=== PATIENT | female | born 1975 | race Caucasian/White ===

== ENCOUNTER → 2016-06-06 | Outpatient (CLI) | payer OTHER | LOC: RAD 13:35 | PROVIDERS: ATTEND Internal Medicine | DX: Z08 Encounter for follow-up examination after completed treatment for malignant neoplasm (principal); C50.512 Malignant neoplasm of lower-outer quadrant of left female breast | CPT/HCPCS: 78472; A9560; Q9969 ==

== ENCOUNTER → 2016-06-22 | Outpatient (CLI) | payer OTHER | LOC: RAD 17:02 | PROVIDERS: ATTEND Internal Medicine | DX: C50.512 Malignant neoplasm of lower-outer quadrant of left female breast (principal) | CPT/HCPCS: 78815; A9552 ==

== ENCOUNTER → 2016-09-14 | Outpatient (CLI) | payer OTHER ==
--- NOTE | 2016-09-15 08:31 | RADIOLOGY REPORT (SQ) ---
EXAM DESCRIPTION: PET CT SKULL/THIGH COMPLETED DATE/TIME: 09/14/2016 8:37 pm REASON FOR STUDY: BREAST CANCER C50.512 MALIG NEOPLASM OF LOWER-OUTER QUADRANT OF LEFT FEMAL COMPARISON: 06/22/2016 and 02/01/2016. RADIONUCLIDE AND DOSE: 12.0 mCi F18 FDG The route of agent administration: Intravenous FASTING BLOOD SUGAR: 90 mg/dl CONTRAST TYPE AND DOSE: No CT contrast given. TECHNIQUE: Blood glucose level was verified. Above dose of FDG was injected intravenously. 2-D seg mented attenuation correction images were obtained from the base of the skull to the midthighs. Nonc ontrast CT images were obtained for attenuation correction and fusion with emission images. CT image s were performed without oral or intravenous contrast and are not sensitive for parenchymal lesions. A series of overlapping emission PET images were obtained. Images reviewed and manipulated at [facility] work station by the radiologist. Images stored on PACS. LIMITATIONS: None. FINDINGS: HEAD AND NECK: No areas of abnormal metabolic activity in the soft tissues of the head and neck. CHEST: Left mastectomy. 8 mm nodule in the medial right breast. Mean SUV value 2.63. No other area s of abnormal metabolic activity in the chest. ABDOMEN AND PELVIS: No areas of abnormal metabolic activity in the abdomen or pelvis. Expected physi ologic activity is present in the genitourinary system and bowel. PROXIMAL LOWER EXTREMITIES: No areas of abnormal metabolic activity in the soft tissues of the lower extremities. BONES: No abnormal metabolic activity in the visualized skeleton. ADDITIONAL CT FINDINGS: Vascular access port. Left ovarian cyst. No other additional significant fi ndings on the noncontrast CT images. OTHER: No other significant findings. IMPRESSION: 1. 8 MM NODULE IN THE MEDIAL RIGHT BREAST WITH INCREASED METABOLIC ACTIVITY. ON CT IMAGING THIS COUL D REPRESENT A LYMPH NODE ALTHOUGH OTHER SOLID MASS INCLUDING MALIGNANT PROCESS ARE ALSO IN THE DIFFER ENTIAL. RECOMMEND CORRELATION WITH MAMMOGRAM AND ULTRASOUND OF THE RIGHT BREAST. 2. NO OTHER AREAS OF ABNORMAL METABOLIC ACTIVITY. INCIDENTAL CT FINDINGS ABOVE. TECHNICAL DOCUMENTATION: JOB ID: [id number] [employer]- All Rights Reserved
== END ==
LOC: RAD 17:20
PROVIDERS: ATTEND Internal Medicine
DX: C50.512 Malignant neoplasm of lower-outer quadrant of left female breast (principal)
CPT/HCPCS: 78815; A9552

== ENCOUNTER → 2016-10-28 | Outpatient (CLI) | payer OTHER ==
--- NOTE | 2016-10-28 08:59 | WOMENS IMAGING REPORT ---
EXAM DESCRIPTION: 3D DX MAMMO RIGHT UNILAT; U/S BREAST UNILAT LIMITED COMPLETED DATE/TIME: 10/28/2016 8:09 am; 10/28/2016 8:38 am REASON FOR STUDY: MALIGNANT NEOPLASM OF LOWER OUTER QUADRANT OF FEMALE BREAST; RT BREAST MASS C50.51 2 MALIG NEOPLASM OF LOWER-OUTER QUADRANT OF LEFT FEMAL COMPARISON: Mammogram dated 12/30/2012. PET-CT dated 09/14/2016. TECHNIQUE: Standard craniocaudal and mediolateral oblique images of the breast recorded using digita l acquisition and breast tomosynthesis. Additional true lateral and exaggerated CC lateral images also acquired. LIMITATIONS: None. FINDINGS: BREAST: right MASSES: Mass in the medial breast with irregular margins. CALCIFICATIONS: No new or suspicious calcifications. ARCHITECTURAL DISTORTION: None. DEVELOPING DENSITY: None. ASYMMETRY: None noted. OTHER: No other significant findings. Read with the assistance of CAD. .[facility] - R2 [employer] Version 1.3 .[facility] - R2 Cenova Version 1.3 .[facility] Imaging - R2 Cenova Version 2.4 .[facility] - R2 Cenova Version 2.4 .[facility] - R2 [employer] Version 9.2 BREAST ULTRASOUND: TECHNIQUE: Static and dynamic grayscale images acquired of the right breast in the specific areas of clinical/mammographic concern. Selected color Doppler images recorded. ELASTOGRAPHY PERFORMED: No. LIMITATIONS: None. FINDINGS: MASS: In the medial breast there is an irregular hypoechoic solid mass measuring 1 cm. This has blake stinct margins with flow on color Doppler. ELASTOGRAPHY CHARACTERISTICS: Not applicable. OTHER: No other significant finding. IMPRESSION: Irregular solid mass in the medial breast corresponding to the findings on PET scan. Wo rrisome for malignancy. BREAST DENSITY: c. The breasts are heterogeneously dense, which may obscure small masses. BIRAD: 4 Suspicious. Biopsy should be considered. RECOMMENDATION: RECOMMENDED FOLLOW UP: Birads 4: Biopsy should be performed in the absence of clinic al contraindication. SPECIFIC INTERVENTION/IMAGING/CONSULTATION RECOMMENDED:The suspicious finding(s) amenable to US guide d core/vacuum assisted biopsy. COMMUNICATION:The imaging findings were discussed with the patient. She is aware that additional adva nced imaging/consultation may be required. Her referring physician has been notified. COMMENT: The patient has been notified of the results by letter per MQSA requirements. Additional no tification policies are in place for contacting patient with suspicious or incomplete findings. Quality ID #[id number]: The [employer] recommends an annual screening mammogram for women aged 40 years or over. This facility utilizes a reminder system to ensure that all patients receive reminder letters, and/or direct phone calls for appointments. This includes reminders for routine scr eening mammograms, diagnostic mammograms, or other Breast Imaging Interventions when appropriate. Th is patient will be placed in the appropriate reminder system. The [employer] (ACR) has developed recommendations for screening MRI of the breast s in certain patient populations, to be used in conjunction with mammography. Breast MRI surveillanc e may be appropriate for women with more than 20% lifetime risk of developing breast cancer as deter mined by genetic testing, significant family history of the disease, or history of mantle radiation f or Hodgkins Disease. ACR Practice Guidelines 2008. DBT Technology DBT is a type of tomographic mammography. With conventional mammography, overlapping breast tissue ma y make lesions difficult to detect, even with good compression. DBT uses an x-ray tube that rotates a round the breast, taking images at different angles. These images are then combined to create thin sl ices of the breast that the radiologist can view as a 3D reconstruction. The [employer] unit can perform full-field digital mammograms (2D imaging); or DBT (3D imaging); or both, in a combination mode that quickly performs both the mammogram and the tomosynthesis scan while the breast is still compressed. PQRS 6045F: Fluoroscopic imaging is not utilized for breast tomosynthesis. TECHNICAL DOCUMENTATION: FINDING NUMBER: (1) ASSESSMENT: (1) JOB ID: [id number] [employer]- All Rights Reserved
--- NOTE | 2016-10-28 08:59 | WOMENS IMAGING REPORT ---
EXAM DESCRIPTION: 3D DX MAMMO RIGHT UNILAT; U/S BREAST UNILAT LIMITED COMPLETED DATE/TIME: 10/28/2016 8:09 am; 10/28/2016 8:38 am REASON FOR STUDY: MALIGNANT NEOPLASM OF LOWER OUTER QUADRANT OF FEMALE BREAST; RT BREAST MASS C50.51 2 MALIG NEOPLASM OF LOWER-OUTER QUADRANT OF LEFT FEMAL COMPARISON: Mammogram dated 12/30/2012. PET-CT dated 09/14/2016. TECHNIQUE: Standard craniocaudal and mediolateral oblique images of the breast recorded using digita l acquisition and breast tomosynthesis. Additional true lateral and exaggerated CC lateral images also acquired. LIMITATIONS: None. FINDINGS: BREAST: right MASSES: Mass in the medial breast with irregular margins. CALCIFICATIONS: No new or suspicious calcifications. ARCHITECTURAL DISTORTION: None. DEVELOPING DENSITY: None. ASYMMETRY: None noted. OTHER: No other significant findings. Read with the assistance of CAD. .[facility] - R2 Cenova Version 1.3 .[facility] Imaging - R2 Cenova Version 1.3 .[facility] - R2 Cenova Version 2.4 .[facility] - R2 Cenova Version 2.4 .[facility] - R2 Internet [employer] Manager Version 9.2 BREAST ULTRASOUND: TECHNIQUE: Static and dynamic grayscale images acquired of the right breast in the specific areas of clinical/mammographic concern. Selected color Doppler images recorded. ELASTOGRAPHY PERFORMED: No. LIMITATIONS: None. FINDINGS: MASS: In the medial breast there is an irregular hypoechoic solid mass measuring 1 cm. This has blake stinct margins with flow on color Doppler. ELASTOGRAPHY CHARACTERISTICS: Not applicable. OTHER: No other significant finding. IMPRESSION: Irregular solid mass in the medial breast corresponding to the findings on PET scan. Wo rrisome for malignancy. BREAST DENSITY: c. The breasts are heterogeneously dense, which may obscure small masses. BIRAD: 4 Suspicious. Biopsy should be considered. RECOMMENDATION: RECOMMENDED FOLLOW UP: Birads 4: Biopsy should be performed in the absence of clinic al contraindication. SPECIFIC INTERVENTION/IMAGING/CONSULTATION RECOMMENDED:The suspicious finding(s) amenable to US guide d core/vacuum assisted biopsy. COMMUNICATION:The imaging findings were discussed with the patient. She is aware that additional adva nced imaging/consultation may be required. Her referring physician has been notified. COMMENT: The patient has been notified of the results by letter per MQSA requirements. Additional no tification policies are in place for contacting patient with suspicious or incomplete findings. Quality ID #[id number]: The [employer] recommends an annual screening mammogram for women aged 40 years or over. This facility utilizes a reminder system to ensure that all patients receive reminder letters, and/or direct phone calls for appointments. This includes reminders for routine scr eening mammograms, diagnostic mammograms, or other Breast Imaging Interventions when appropriate. Th is patient will be placed in the appropriate reminder system. The [employer] (ACR) has developed recommendations for screening MRI of the breast s in certain patient populations, to be used in conjunction with mammography. Breast MRI surveillanc e may be appropriate for women with more than 20% lifetime risk of developing breast cancer as deter mined by genetic testing, significant family history of the disease, or history of mantle radiation f or Hodgkins Disease. ACR Practice Guidelines 2008. DBT Technology DBT is a type of tomographic mammography. With conventional mammography, overlapping breast tissue ma y make lesions difficult to detect, even with good compression. DBT uses an x-ray tube that rotates a round the breast, taking images at different angles. These images are then combined to create thin sl ices of the breast that the radiologist can view as a 3D reconstruction. The [employer] unit can perform full-field digital mammograms (2D imaging); or DBT (3D imaging); or both, in a combination mode that quickly performs both the mammogram and the tomosynthesis scan while the breast is still compressed. PQRS 6045F: Fluoroscopic imaging is not utilized for breast tomosynthesis. TECHNICAL DOCUMENTATION: FINDING NUMBER: (1) ASSESSMENT: (1) JOB ID: [id number] [employer]- All Rights Reserved
== END ==
LOC: WI 07:44
PROVIDERS: ATTEND Internal Medicine
DX: C50.512 Malignant neoplasm of lower-outer quadrant of left female breast (principal)
CPT/HCPCS: 77061; 76642; G0206

== ENCOUNTER → 2016-11-07 | Day surgery (SDC) | payer OTHER ==
[~2016-11-07] MED LIST: LIDOCAINE 2% INJ (20 MG/ML) 20 ML MDV ONE
--- NOTE | 2016-11-11 17:39 | WOMENS IMAGING REPORT ---
EXAM DESCRIPTION: U/S BREAST BX; RIGHT DIG DX MAMMO NO CHG COMPLETED DATE/TIME: 11/07/2016 10:34 am; 11/07/2016 10:32 am REASON FOR STUDY: RT BREAST LUMP; N3 S/P US BX FOR CLIP PLACEMENT Z85.3 PERSONAL HISTORY OF MALIGNA NT NEOPLASM OF BREAST N63 UNSPECIFIED LUMP IN BREAST COMPARISON: Multiple previous exams including a left breast diagnostic mammogram and ultrasound 10/28, PET-CT 09/14/2016 TECHNIQUE: The procedure was discussed with the patient and the patient agreed to proceed. The patient was scanned and the area of interest in the 3 o'clock position 10 cm from the nipple of t he right breast was localized. This correlates with the area of concern on prior imaging studies. Th is area was targeted for ultrasound-guided core biopsy. After sterile skin prep and 3.5 mL local lidocaine 1% for skin and deep tissue anesthesia, a 14 gauge coaxial core biopsy needle was used to obtain several cores of tissue from the lesion. Under ultras ound guidance, a ribbon clip was placed in the areas sampled. There were no immediate post-procedure complications. MAMMOGRAM: Post-procedure two view mammogram was acquired in the digital mammogram suite. The clip wa s in the expected location. No significant hematoma. Pathology yields a diagnosis of well-differentiated invasive ductal carcinoma Pathology is concordant. LIMITATIONS: None. FINDINGS: Ultrasound guided breast biopsy as described above. POST PROCEDURE MAMMOGRAMS FOR MARKER PLACEMENT: Yes IMPRESSION: ULTRASOUND-GUIDED CORE BIOPSY OF THE RIGHT BREAST YIELDS A DIAGNOSIS OF WELL-DIFFERENTIA KRISTI INVASIVE DUCTAL CARCINOMA. BI-RADS 6 Known biopsy-proven malignancy. Appropriate action should be taken. COMMENT: COMMUNICATION: THESE FINDINGS WERE DISCUSSED WITH THE PATIENT, 11/10/2016, 1015 HOURS Patient medication list reviewed: Yes- Quality ID# [id number]:Eligible professional attests to documenting i n the medical record they obtained, updated, or reviewed the patient's current medications. TECHNICAL DOCUMENTATION: JOB ID: [id number] [employer]- All Rights Reserved
== END ==
LOC: WI 09:19
PROVIDERS: ATTEND Surgery
PROC: 0HBT3ZX Excision of Right Breast, Percutaneous Approach, Diagnostic (ICD-10-PCS; principal; 2016-11-07)
DX: C50.911 Malignant neoplasm of unspecified site of right female breast (principal); Z85.3 Personal history of malignant neoplasm of breast
CPT/HCPCS: 19083; 88305; J3490

== ENCOUNTER 2016-11-25 07:32 | Day surgery (SDC) | payer OTHER ==
[2016-11-20 11:51] LABS: ANION GAP 15 (5-19); BLOOD UREA NITROGEN 18 mg/dL (7-20); CALCIUM 9.9 mg/dL (8.4-10.2); CARBON DIOXIDE 24 mmol/L (22-30); CHLORIDE 105 mmol/L (98-107); CREATININE RESULT 0.66 mg/dL (0.52-1.25); GLUCOSE 97 mg/dL (75-110); POTASSIUM 4.3 mmol/L (3.6-5.0); SODIUM 144.3 mmol/L (137-145)
[2016-11-20 12:19] LABS: ABSOLUTE EOSINOPHILS # (AUTO) 0.2 10^3/uL (0.0-0.6); ABSOLUTE LYMPHOCYTES (AUTO) 1.6 10^3/uL (0.5-4.7); ABSOLUTE MONOCYTES (AUTO) 0.4 10^3/uL (0.1-1.4); ABSOLUTE NEUT (AUTO) 4.9 10^3/uL (1.7-8.2); BASOPHILS % (AUTO) 0.5 % (0-2); EOSINOPHILS % (AUTO) 2.2 % (0-6); HEMATOCRIT 38.3 % (36.0-47.0); HEMOGLOBIN 13.3 g/dL (12.0-15.5); HGB HCT DIFFERENCE 1.6; LYMPHOCYTES % (AUTO) 22.5 % (13-45); MEAN CORPUSCULAR HEMOGLOBIN 32.6 pg (27.0-33.4); MEAN CORPUSCULAR HGB CONC 34.8 g/dL (32.0-36.0); MEAN CORPUSCULAR VOLUME 94 fl (80-97); MONOCYTES % (AUTO) 5.1 % (3-13); RED BLOOD COUNT 4.09 10^6/uL (3.72-5.28); RED CELL DISTRIBUTION WIDTH 13.9 % (11.5-14.0); SEGMENTED NEUTROPHILS % (AUTO) 69.7 % (42-78); WHITE BLOOD COUNT 7.1 10^3/uL (4.0-10.5)
--- NOTE | 2016-11-20 19:49 | EKG REPORT ---
SEVERITY:- NORMAL ECG - SINUS RHYTHM : Confirmed by: Chris Haq MD 20-Nov-2016 19:49:00
[~2016-11-25 07:32] MED LIST changes: +CEFAZOLIN 1 GM/D5W RTU 1 GM/50 ML RTUPB IV PRN; +LACTATED RINGERS 1000 ML IV PRN; +LIDOCAINE 0.5% INJ-PF (5 MG/ML) 50 ML SDV SUBCUT PRN; -LIDOCAINE 2% INJ (20 MG/ML) 20 ML MDV ONE; +LIDOCAINE 4% TRANSPARENT DRESSING 5 GM KIT TP PRN; +NORMAL SALINE 1000 ML 1,000 ML IV PRN
[2016-11-25] MEDS ORDERED: SUCCINYLCHOLINE CHLORIDE INJ 200 MG/10 ML VIAL ONE (07:38)
[2016-11-25] MEDS ORDERED: METHYLENE BLUE 50 MG/10 ML AMPULE ONE (12:33)
--- NOTE | 2016-11-25 13:15 | RADIOLOGY REPORT (SQ) ---
EXAM DESCRIPTION: NM LYMPHATICS/LYMPH GLANDS COMPLETED DATE/TIME: 11/25/2016 11:12 am REASON FOR STUDY: BREAST CANCER C50.911 MALIGNANT NEOPLASM OF UNSP SITE OF RIGHT FEMALE ZAY COMPARISON: None. RADIONUCLIDE AND DOSE: 526 microcuries TC-99mtilmanocept - [employer]ek. The route of agent administration: Subcutaneous in the skin. TECHNIQUE: The skin of the right breast was prepped in sterile fashion. The radiopharmaceutical was administered in equally divided doses in the periareolar breast. LIMITATIONS: None. FINDINGS: Images demonstrate activity at the injection site. IMPRESSION: ADMINISTRATION OF RADIOPHARMACEUTICAL FOR SENTINEL LYMPH NODE EVALUATION. TECHNICAL DOCUMENTATION: JOB ID: [id number] [employer]- All Rights Reserved
[2016-11-25] MEDS ORDERED: LIDOCAINE 2% INJ-PF (20 MG/ML) 10 ML AMPUL ONE (13:43)
[2016-11-25] MEDS ORDERED: MIDAZOLAM 2 MG/2 ML INJ ONE (13:43)
[2016-11-25] MEDS ORDERED: FENTANYL CITRATE INJ/PF 250 MCG/5 ML AMPULE ONE (13:43)
[2016-11-25] MEDS ORDERED: IBUPROFEN INJ 800 MG/8 ML VIAL IV ONE (13:44)
[2016-11-25] MEDS ORDERED: EPHEDRINE SULFATE INJ 50 MG/1 ML AMPULE ONE (13:44)
[2016-11-25] MEDS ORDERED: PROPOFOL INJ 200 MG/20 ML VIAL IV ONE (13:44)
[2016-11-25] MEDS ORDERED: ONDANSETRON HCL INJ/PF 4 MG/2 ML SDV ONE (13:45)
[2016-11-25] MEDS ORDERED: DEXAMETHASONE SOD PHOSPHATE INJ 4 MG/1 ML VIAL ONE (13:45)
[2016-11-25] MEDS ORDERED: MEPERIDINE HCL/PF INJ 25 MG/1 ML DISP.SYRIN IV PRN (14:49)
[2016-11-25] MEDS ORDERED: ONDANSETRON HCL INJ/PF 4 MG/2 ML SDV IV PRN (14:49)
[2016-11-25] MEDS ORDERED: FENTANYL CITRATE INJ/PF 100 MCG/2 ML AMPUL IV PRN ×3 (14:49)
[2016-11-25] MEDS ORDERED: PROMETHAZINE HCL INJ 25 MG/1 ML VIAL IV PRN ×2 (14:49)
[2016-11-25] MEDS ORDERED: DIPHENHYDRAMINE HCL 50 MG/ML VIAL IV PRN (14:49)
[2016-11-25] MEDS ORDERED: NORMAL SALINE 1000 ML 1,000 ML IV PRN (17:10)
[2016-11-25] MEDS ORDERED: MORPHINE SULFATE 10 MG/ML INJ IV PRN (17:10)
--- NOTE | 2016-11-25 17:10 | Operative Report ---
Operative Report DATE OF SURGERY: 11/25/16 PREOPERATIVE DIAGNOSIS: Right breast cancer POSTOPERATIVE DIAGNOSIS: Right breast cancer OPERATION: Right mastectomy, injection of blue dye for identification of sentinel nodes, right axillary sentinel node biopsy. SURGEON: VALENTINO STACY ANESTHESIA: GA TISSUE REMOVED OR ALTERED: Right breast and right axillary sentinel nodes. COMPLICATIONS: None ESTIMATED BLOOD LOSS: 200 cc INTRAOPERATIVE FINDINGS: Enlarged lymph node in the right axilla. Two hot but not blue right axillary lymph nodes. PROCEDURE: Informed consent was obtained. Patient was brought to the operating room and placed on the operating table in the supine position. After satisfactory induction of general anesthesia, her right breast was prepped with alcohol and blue dye was injected at the periareolar region and breast massage was performed for 5 minutes. Her right breast and axilla were prepped and draped in usual sterile fashion. Ellipse of skin encompassing the nipple areolar complex was taken along with the breast. Superior inferior medial and lateral flaps were raised and then the breast was taken off the pectoralis along with the fascia. Of note the soft tissue around the right subclavian Port-A-Cath was left intact to preserve the Port-A-Cath. The right axilla was then entered. There was no blue dye visible. There was an enlarged firm lymph node in the level 1 location which was harvested and submitted to pathology. Pathologic evaluation was negative for metastatic disease. There were 2 hot nodes but not blue nodes identified in level 1 location. The first of these 2 hot nodes had an in vivo count of 4360 and an ex vivo count of 10,176. The second hot node had an in vivo count of 1331 and ex vivo count of 1456. Neither of these nodes were blue however. No blue node was identified. The 2 hot nodes were negative on pathologic evaluation. The breast was submitted to pathology with short stitch marking superior border long stitch marking lateral border. Hemostasis appeared excellent. Seprafilm was placed at the axilla. 2 Brad-Santamaria drains were placed one at the axilla and one at the mastectomy site and brought out through separate stab incisions. Skin was closed with deep dermal interrupted Vicryl sutures followed by running subcuticular Prolene pullout suture. Patient tolerated procedure well with no apparent complications and was taken to the recovery area in stable condition.
[2016-11-25] MEDS: FENTANYL CITRATE INJ/PF 100 MCG/2 ML AMPUL ONE ×2 (17:12→17:16)
[2016-11-25] MEDS ORDERED: HYDROMORPHONE HCL INJ/PF 2 MG/ML AMPULE ONE (19:34)
[2016-11-25] MEDS: ONDANSETRON HCL INJ/PF 4 MG/2 ML SDV IV PRN (19:40)
--- NOTE | 2016-11-25 19:43 | PDOC PROGRESS REPORT ---
Subjective Progress Note for:: 11/25/16 Subjective:: Feels well. Physical Exam Vital Signs: Temp Pulse Resp BP Pulse Ox 98.3 F 70 18 149/69 H 98 11/25/16 19:05 11/25/16 19:05 11/25/16 19:05 11/25/16 19:05 11/25/16 19:05 Intake & Output 11/24/16 11/25/16 11/26/16 06:59 06:59 06:59 Intake Total 2200 Output Total 550 Balance 1650 Weight 95.25 kg 95.25 kg General appearance: PRESENT: no acute distress, cooperative Respiratory exam: PRESENT: other - Compressive dressings intact. Drain output is blood-tinged. Results Laboratory Results: 11/20/16 10:31 11/20/16 10:31 Impressions: Lymph Scan Nuclear Medicine 11/25/16 00:00 IMPRESSION: ADMINISTRATION OF RADIOPHARMACEUTICAL FOR SENTINEL LYMPH NODE EVALUATION. Assessment & Plan - Diagnosis (1) Breast cancer Qualifiers: Patient sex: female Laterality: right Is this a current diagnosis for this admission?: Yes Plan: Status post right mastectomy and sentinel node biopsy. Patient looks good. Will discharge patient home in the morning.
[2016-11-26] MEDS: HYDROMORPHONE HCL INJ/PF 2 MG/ML AMPULE IV PRN ×2 (05:04→10:36)
[2016-11-26] MEDS: ONDANSETRON HCL INJ/PF 4 MG/2 ML SDV IV PRN (05:05)
--- NOTE | 2016-11-26 09:17 | PDOC PROGRESS REPORT ---
Subjective Progress Note for:: 11/26/16 Subjective:: Feels well, no complaints Physical Exam Vital Signs: Temp Pulse Resp BP Pulse Ox 97.5 F 65 16 121/63 100 11/26/16 07:13 11/26/16 07:13 11/26/16 07:13 11/26/16 07:13 11/26/16 07:13 Intake & Output 11/25/16 11/26/16 11/27/16 06:59 06:59 06:59 Intake Total 2860 0 Output Total 880 35 Balance 1979 Weight 95.25 kg 96.2 kg General appearance: PRESENT: no acute distress, cooperative Respiratory exam: PRESENT: clear to auscultation linsey, other - Wounds clean dry and intact. Drain output is serosanguineous. Cardiovascular exam: PRESENT: RRR Extremities exam: PRESENT: other - No swelling Results Laboratory Results: 11/20/16 10:31 11/20/16 10:31 Impressions: Lymph Scan Nuclear Medicine 11/25/16 00:00 IMPRESSION: ADMINISTRATION OF RADIOPHARMACEUTICAL FOR SENTINEL LYMPH NODE EVALUATION. Assessment & Plan - Diagnosis (1) Breast cancer Qualifiers: Patient sex: female Laterality: right Is this a current diagnosis for this admission?: Yes Plan: Doing well after mastectomy and sentinel node biopsy. Will discharge patient home. Follow-up next week.
[2016-11-26] MEDS ORDERED: INFLUENZA ADLT QUAD (36MOS+) 2017-18 VAC 0.5 ML SYR IM PRN (11:26)
[2016-11-26 12:35] VITALS: BP 145/59
--- NOTE | 2016-11-26 14:45 | WOMENS IMAGING REPORT ---
EXAM DESCRIPTION: BREAST SPECIMEN COMPLETED DATE/TIME: 11/26/2016 11:13 am; 11/26/2016 11:53 am REASON FOR STUDY: RT BREAST SPECIMEN C50.911 MALIGNANT NEOPLASM OF UNSP SITE OF RIGHT FEMALE ZAY COMPARISON: Multiple previous mammograms and ultrasound exams TECHNIQUE: Specimen radiograph from breast procedure performed in the operating room. LIMITATIONS: None. FINDINGS: Specimen radiograph from breast procedure performed in the operating room. The nodule of concern and ultrasound-guided biopsy clip are contained within the initial specimen from the OR, ban r the ball point pen marker. Cassettes were also submitted for radiographs, the cassette adjacent to the single paper clip contain s the biopsy clip. Please see procedure note for details and final pathology. IMPRESSION: Specimen radiograph. TECHNICAL DOCUMENTATION: JOB ID: [id number]
--- NOTE | 2016-11-26 22:53 | DISCHARGE SUMMARY E ---
Discharge Summary NAME: RICHELLE DICK : 1975 AGE: 41Y ADMITTED: 11/25/2016 DISCHARGED: 11/26/2016 DISCHARGE DIAGNOSIS: Right breast cancer. PROCEDURE PERFORMED DURING HOSPITALIZATION: Right mastectomy, injection of blue dye for identification of sentinel nodes, right axillary sentinel node biopsy performed by Dr. Joselito Plaza, November 25, 2016. HOSPITAL COURSE: The patient underwent the above mentioned procedure. She did well postoperatively. She had good control of her pain. Her Brad-Santamaria drain output was serosanguineous and her wounds looked good. Patient is now being discharged home in good condition. She will follow up with me next week. Brad-Santamaria drain instructions were given to the patient. Discharge medications are to resume her home medication. Additional medication Percocet 1 p.o. q.4 hours p.r.n. pain. She was encouraged to stay active at home. She may follow a regular diet. DICTATING PHYSICIAN: JOSELITO PLAZA M.D. [id number] Y#: [id number] ID: [id number] JOB#: [id number] ACCT: [id number] cc:JOSELITO PLAZA M.D. >
== END 2016-11-26 12:05 | disposition home or self-care (01) ==
LOC: OROUT 07:32 → 4N 18:19 → OROUT 11-26 12:05
PROVIDERS: ATTEND Surgery
PROC: 07B50ZX Excision of Right Axillary Lymphatic, Open Approach, Diagnostic (ICD-10-PCS; 2016-11-25)
PROC: 0HTT0ZZ Resection of Right Breast, Open Approach (ICD-10-PCS; principal; 2016-11-25 11:30)
DX: C50.811 Malignant neoplasm of overlapping sites of right female breast (principal); C77.3 Secondary and unspecified malignant neoplasm of axilla and upper limb lymph nodes; M19.90 Unspecified osteoarthritis, unspecified site; E66.9 Obesity, unspecified; G40.909 Epilepsy, unspecified, not intractable, without status epilepticus; Z88.5 Allergy status to narcotic agent; Z85.3 Personal history of malignant neoplasm of breast; Z79.899 Other long term (current) drug therapy; Z68.34 Body mass index [BMI] 34.0-34.9, adult; Z87.891 Personal history of nicotine dependence; Z87.820 Personal history of traumatic brain injury
CPT/HCPCS: 93005; 36415; 85025; 81025; 80048; 88307 ×2; 78195; 90686; 93010; 76098; 19307; L8000; A9520; J2250; J0690; J1100; J3490 ×3; J3010 ×2; J1170 ×2; J0330; J2405 ×2; J2704; J1741; Q9968; 1610

== ENCOUNTER → 2017-02-10 | Outpatient (CLI) | payer OTHER ==
--- NOTE | 2017-02-11 10:13 | RADIOLOGY REPORT (SQ) ---
EXAM DESCRIPTION: PET CT SKULL/THIGH COMPLETED DATE/TIME: 02/10/2017 7:54 pm REASON FOR STUDY: BREAST CANCER C50.512 MALIG NEOPLASM OF LOWER-OUTER QUADRANT OF LEFT FEMAL COMPARISON: PET-CT 12/18/2013, 07/21/2014, 01/22/2016, 09/14/2016 RADIONUCLIDE AND DOSE: 11.3 mCi F18 FDG The route of agent administration: Intravenous FASTING BLOOD SUGAR: 107 mg/dl CONTRAST TYPE AND DOSE: No CT contrast given. TECHNIQUE: Blood glucose level was verified. Above dose of FDG was injected intravenously. 2-D seg mented attenuation correction images were obtained from the base of the skull to the midthighs. Nonc ontrast CT images were obtained for attenuation correction and fusion with emission images. CT image s were performed without oral or intravenous contrast and are not sensitive for parenchymal lesions. A series of overlapping emission PET images were obtained. Images reviewed and manipulated at [facility] work station by the radiologist. Images stored on PACS. LIMITATIONS: None. FINDINGS: HEAD AND NECK: No areas of abnormal metabolic activity in the soft tissues of the head and neck. CHEST: No areas of abnormal metabolic activity in the chest. ABDOMEN AND PELVIS: No areas of abnormal metabolic activity in the abdomen or pelvis. Expected physi ologic activity is present in the genitourinary system and bowel. PROXIMAL LOWER EXTREMITIES: No areas of abnormal metabolic activity in the soft tissues of the lower extremities. BONES: No abnormal metabolic activity in the visualized skeleton. ADDITIONAL CT FINDINGS: Bilateral mastectomies with right axillary surgical clips. Right permanent c entral line tip superior vena cava. Less than 2 cm bilateral ovarian cysts. 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 OTHER: Liver background SUV 2.2. Blood pool background activity 1.7 SUV. IMPRESSION: No PET-CT evidence of metastatic disease from patient's known breast cancer TECHNICAL DOCUMENTATION: JOB ID: [id number] [employer]- All Rights Reserved
== END ==
LOC: RAD 15:36
PROVIDERS: ATTEND Internal Medicine
DX: C50.512 Malignant neoplasm of lower-outer quadrant of left female breast (principal)
CPT/HCPCS: 78815; A9552

== ENCOUNTER → 2017-05-31 | Outpatient (CLI) | payer OTHER ==
--- NOTE | 2017-06-01 08:55 | RADIOLOGY REPORT (SQ) ---
EXAM DESCRIPTION: PET CT SKULL/THIGH COMPLETED DATE/TIME: 05/31/2017 6:04 pm REASON FOR STUDY: BREAST CANCER C50.512 MALIG NEOPLASM OF LOWER-OUTER QUADRANT OF LEFT FEMAL COMPARISON: 02/10/2017 RADIONUCLIDE AND DOSE: 9.9 mCi F18 FDG The route of agent administration: Intravenous FASTING BLOOD SUGAR: 89 mg/dl CONTRAST TYPE AND DOSE: No CT contrast given. TECHNIQUE: Blood glucose level was verified. Above dose of FDG was injected intravenously. 2-D seg mented attenuation correction images were obtained from the base of the skull to the midthighs. Nonc ontrast CT images were obtained for attenuation correction and fusion with emission images. CT image s were performed without oral or intravenous contrast and are not sensitive for parenchymal lesions. A series of overlapping emission PET images were obtained. Images reviewed and manipulated at [facility] work station by the radiologist. Images stored on PACS. LIMITATIONS: None. FINDINGS: HEAD AND NECK: No areas of abnormal metabolic activity in the soft tissues of the head and neck. CHEST: No areas of abnormal metabolic activity in the chest. ABDOMEN AND PELVIS: No areas of abnormal metabolic activity in the abdomen or pelvis. Expected physi ologic activity is present in the genitourinary system and bowel. PROXIMAL LOWER EXTREMITIES: No areas of abnormal metabolic activity in the soft tissues of the lower extremities. BONES: No abnormal metabolic activity in the visualized skeleton. ADDITIONAL CT FINDINGS: Right axillary clips. Right-sided port with tip in the SVC. OTHER: No other significant findings. IMPRESSION: No evidence of metastatic disease. TECHNICAL DOCUMENTATION: JOB ID: [id number] [employer]- All Rights Reserved Reading location - IP/workstation name: [email or web address]
== END ==
LOC: RAD 14:43
PROVIDERS: ATTEND Internal Medicine
DX: C50.512 Malignant neoplasm of lower-outer quadrant of left female breast (principal)
CPT/HCPCS: 78815; A9552

== ENCOUNTER 2017-08-19 21:01 | Emergency (ER) | payer OTHER ==
[2017-08-19] MEDS ORDERED: DIPH/PERTUSS(ACELL)/TETANUS VAC/PF 0.5 ML SYR (>=10YO) IM ONE (23:21)
--- NOTE | 2017-08-19 23:21 | ER Document Report ---
ED Medical Screen (RME) - General Chief Complaint: Laceration Stated Complaint: LEFT INDEX FINGER INJURY Time Seen by Provider: 08/19/17 23:20 Mode of Arrival: Ambulatory Information source: Patient Notes: 42-year-old female presented to ED for complaint of laceration to her left index finger. She states she was cutting the hair of the vacuolar when the knife slipped cutting her finger. She states her tetanus is out of date she knows it is she has not had one since 1999 and she is not sure if she even had one then. Bleeding is under control she has a bandage on the finger. She states she cut it around 7:00 tonight. I have greeted and performed a rapid initial assessment of this patient. A comprehensive ED assessment and evaluation of the patient, analysis of test results and completion of medical decision making process will be conducted by an additional ED providers. TRAVEL OUTSIDE OF THE [place] IN LAST 30 DAYS: No - Related Data Allergies/Adverse Reactions: codeine [Codeine] Allergy (Severe, Verified 06/22/13 14:41) SOB, swelling animal dander Allergy (Verified 11/20/16 09:31) sneezing, congestion, eye irritation adhesive tape Adverse Reaction (Verified 12/05/16 10:27) Past Medical History - Past Medical History Cardiac Medical History: Reports: Hx Hypertension - HX OF BUT NONE CURRENTLY Denies: Hx Atrial Fibrillation, Hx Congestive Heart Failure, Hx Coronary Artery Disease, Hx Heart Attack, Hx Hypercholesterolemia, Hx Peripheral Vascular Disease, Hx Heart Murmur Pulmonary Medical History: Denies: Hx Asthma, Hx Bronchitis, Hx COPD, Hx Pneumonia Neurological Medical History: Reports: Hx Seizures - 1992 HEAD INJURY FROM PLAYING SOCCER RESULTED IN SEIZURE. Denies: Hx Cerebrovascular Accident Renal/ Medical History: Denies: Hx Ovarian Cysts, Hx Pelvic Inflammatory Disease Malignancy Medical History: Reports: Hx Breast Cancer. Denies: Hx Cervical Cancer, Hx Ovarian Cancer GI Medical History: Denies: Hx Crohn's Disease, Hx Gastroesophageal Reflux Disease, Hx Hiatal Hernia, Hx Irritable Bowel, Hx Liver Failure, Hx Pancreatitis , Hx Ulcer Musculoskeltal Medical History: Reports Hx Arthritis, Denies Hx Fibromyalgia, Denies Hx Multiple Sclerosis, Denies Hx Muscular Dystrophy Psychiatric Medical History: Reports: Hx Post Traumatic Stress Disorder Denies: Hx Bipolar Disorder, Hx Dementia, Hx Depression, Hx Schizophrenia Traumatic Medical History: Reports: Hx Fractures - LT FOOT Past Surgical History: Reports: Hx Mastectomy - LEFT, Hx Tonsillectomy. Denies : Hx Appendectomy, Hx Bowel Surgery, Hx Section, Hx Cholecystectomy, Hx Colostomy, Hx Coronary Artery Bypass Graft, Hx Gastric Bypass Surgery, Hx Herniorrhaphy, Hx Hysterectomy, Hx Pacemaker, Hx Tubal Ligation - Immunizations Hx Diphtheria, Pertussis, Tetanus Vaccination: Yes - Not positive History of Influenza Vaccine for 11/2016 - 04/2017 Season: Yes Influenza Administration Date for 11/2016 - 04/2017 Season: 11/09/16 Physical Exam - Vital signs Vitals: Temp Pulse Resp BP Pulse Ox 98.2 F 70 16 154/86 H 98 08/19/17 21:44 08/19/17 21:44 08/19/17 21:44 08/19/17 21:44 08/19/17 21:44 Course - Vital Signs Vital signs: Temp Pulse Resp BP Pulse Ox 98.2 F 70 16 154/86 H 98 08/19/17 21:44 08/19/17 21:44 08/19/17 21:44 08/19/17 21:44 08/19/17 21:44 Doctor's Discharge - Discharge Referrals: PARUL ODONNELL MD [Primary Care Provider] - Follow up as needed
--- NOTE | 2017-08-20 00:28 | ER Document Report ---
ED General - General Chief Complaint: Laceration Stated Complaint: LEFT INDEX FINGER INJURY Time Seen by Provider: 08/19/17 23:20 Mode of Arrival: Ambulatory Information source: Patient, [facility] Records Notes: 42-year-old female with breast cancer presents with complaint of laceration to her left index finger that she sustained just prior to arrival while using a pocket knife to clean the hair out of her rhoomba vacuum. Patient reports the knife to be clean. She is not up-to-date with her tetanus. She is currently undergoing chemotherapy for her breast cancer but has no complaints at this time. TRAVEL OUTSIDE OF THE [place] IN LAST 30 DAYS: No - HPI Onset: Just prior to arrival Onset/Duration: Gradual Quality of pain: Achy Severity: Mild Associated symptoms: None Exacerbated by: Movement Relieved by: Remaining still Similar symptoms previously: No Recently seen / treated by doctor: No - Related Data Allergies/Adverse Reactions: codeine [Codeine] Allergy (Severe, Verified 06/22/13 14:41) SOB, swelling animal dander Allergy (Verified 11/20/16 09:31) sneezing, congestion, eye irritation adhesive tape Adverse Reaction (Verified 12/05/16 10:27) Past Medical History - General Information source: Patient - Social History Smoking Status: Unknown if Ever Smoked Frequency of alcohol use: None Drug Abuse: None Lives with: Family Family History: Reviewed & Not Pertinent Patient has suicidal ideation: No Patient has homicidal ideation: No - Past Medical History Cardiac Medical History: Reports: Hx Hypertension - HX OF BUT NONE CURRENTLY Denies: Hx Atrial Fibrillation, Hx Congestive Heart Failure, Hx Coronary Artery Disease, Hx Heart Attack, Hx Hypercholesterolemia, Hx Peripheral Vascular Disease, Hx Heart Murmur Pulmonary Medical History: Denies: Hx Asthma, Hx Bronchitis, Hx COPD, Hx Pneumonia Neurological Medical History: Reports: Hx Seizures - 1992 HEAD INJURY FROM PLAYING SOCCER RESULTED IN SEIZURE. Denies: Hx Cerebrovascular Accident Renal/ Medical History: Denies: Hx Ovarian Cysts, Hx Peritoneal Dialysis, Hx Pelvic Inflammatory Disease Malignancy Medical History: Reports: Hx Breast Cancer. Denies: Hx Cervical Cancer, Hx Ovarian Cancer GI Medical History: Denies: Hx Crohn's Disease, Hx Gastroesophageal Reflux Disease, Hx Hiatal Hernia, Hx Irritable Bowel, Hx Liver Failure, Hx Pancreatitis , Hx Ulcer Musculoskeletal Medical History: Reports Hx Arthritis, Denies Hx Fibromyalgia, Denies Hx Multiple Sclerosis, Denies Hx Muscular Dystrophy Psychiatric Medical History: Reports: Hx Post Traumatic Stress Disorder Denies: Hx Bipolar Disorder, Hx Dementia, Hx Depression, Hx Schizophrenia Traumatic Medical History: Reports: Hx Fractures - LT FOOT Past Surgical History: Reports: Hx Mastectomy - LEFT, Hx Tonsillectomy. Denies : Hx Appendectomy, Hx Bowel Surgery, Hx Section, Hx Cholecystectomy, Hx Colostomy, Hx Coronary Artery Bypass Graft, Hx Gastric Bypass Surgery, Hx Herniorrhaphy, Hx Hysterectomy, Hx Pacemaker, Hx Tubal Ligation - Immunizations Hx Diphtheria, Pertussis, Tetanus Vaccination: Yes - Not positive Review of Systems - Review of Systems Notes: REVIEW OF SYSTEMS: CONSTITUTIONAL : Denies fever, chills, or sweats. Denies recent illness. Denies weight loss, recent hospitalizations. EENT: Denies visual changes, eye pain. Denies nasal or sinus congestion or discharge. Denies sore throat, oral lesions, difficulty swallowing. CARDIOVASCULAR: Denies chest pain. Denies palpitations. Denies lower extremity edema. RESPIRATORY: Denies cough, cold, or chest congestion. Denies shortness of breath, wheezing. GASTROINTESTINAL: Denies abdominal pain or distention. Denies nausea, vomiting , or diarrhea. Denies blood in vomitus, stools, or per rectum. Denies black, tarry stools. Denies constipation. GENITOURINARY: Denies difficulty urinating, painful urination, frequency, blood in urine, or vaginal discharge. MUSCULOSKELETAL: Denies back or neck pain or stiffness. Denies joint pain or swelling. SKIN: Denies rash, sores. HEMATOLOGIC : Denies easy bruising or bleeding. LYMPHATIC: Denies swollen glands. NEUROLOGICAL: Denies confusion or altered mental status. Denies passing out or loss of consciousness. Denies dizziness or lightheadedness. Denies headache. Denies weakness or paralysis. Denies problems difficulty with ambulation, slurred speech. Denies sensory loss, numbness, or tingling. Denies seizures. PSYCHIATRIC: Denies anxiety or stress. Denies depression, suicidal ideation, or homicidal ideation. Denies visual or auditory hallucinations. Physical Exam - Vital signs Vitals: Temp Pulse Resp BP Pulse Ox 98.2 F 70 16 154/86 H 98 08/19/17 21:44 08/19/17 21:44 08/19/17 21:44 08/19/17 21:44 08/19/17 21:44 - Notes Notes: PHYSICAL EXAMINATION: GENERAL: Well-appearing, well-nourished and in no acute distress. HEAD: Atraumatic, normocephalic. EYES: Pupils equal round and reactive to light, extraocular movements intact, conjunctiva are normal. ENT: Nares patent, oropharynx clear without exudates. Moist mucous membranes. NECK: Normal range of motion, supple without lymphadenopathy LUNGS: Breath sounds clear to auscultation bilaterally and equal. No wheezes rales or rhonchi. HEART: Regular rate and rhythm without murmurs ABDOMEN: Soft, nontender, nondistended abdomen. No guarding, no rebound. No masses appreciated. Female : deferred Musculoskeletal: Normal range of motion, no pitting or edema. No cyanosis. NEUROLOGICAL: Cranial nerves grossly intact. Normal speech, normal gait. Normal sensory, motor exams PSYCH: Normal mood, normal affect. SKIN: 0.5 centimeters superficial laceration to the left index finger on the dorsal aspect. No active bleeding. Course - Re-evaluation Re-evalutation: 08/20/17 00:27 42-year-old female presents with a laceration to her left index finger. There is a 0.5 cm superficial laceration on the dorsal aspect of the left index finger. No active bleeding. Dermabond used to repair laceration. Tetanus updated. Patient discharged home in stable condition. - Vital Signs Vital signs: Temp Pulse Resp BP Pulse Ox 97.5 F 68 16 130/79 H 94 08/20/17 01:14 08/20/17 01:14 08/20/17 01:14 08/20/17 01:14 08/20/17 01:14 Procedures - Laceration/Wound Repair Left Finger 2nd digit Time completed: 00:26 Wound length (cm): 0.5 Wound's Depth, Shape: Superficial Laceration pre-procedure: Shur-Clens applied Wound explored: Clean Irrigated w/ Saline (mLs): 500 Wound Repaired With: Dermabond Layer Closure?: No Post-procedure wound care: Splint applied Post-procedure NV exam normal: Yes Complications: No Discharge - Discharge Clinical Impression: Finger laceration Qualifiers: Encounter type: initial encounter Finger: index finger Damage to nail status: without damage Foreign body presence: without foreign body Laterality: left Qualified Code(s): S61.211A - Laceration without foreign body of left index finger without damage to nail, initial encounter Condition: Good Disposition: HOME, SELF-CARE Instructions: Laceration Care ([facility]), Tetanus Immunization Given ([facility]) Forms: Elevated Blood Pressure Referrals: PARUL ODONNELL MD [Primary Care Provider] - Follow up as needed
--- NOTE | 2017-08-20 01:08 | RADIOLOGY REPORT (SQ) ---
EXAM DESCRIPTION: XR HAND 3 OR MORE VIEWS COMPLETED DATE/TME: 08/19/2017 22:22 CLINICAL HISTORY: 42 years, Female, lac COMPARISON: None. FINDINGS: 3 views of the left hand. No acute fracture or dislocation. Normal osseous mineralization. Soft tissue injury involving the second digit. No radiopaque foreign body. IMPRESSION: No acute fracture or dislocation. 2011 [employer]- All Rights Reserved
[2017-08-20 01:16] VITALS: BP 130/79
== END 2017-08-20 01:16 | disposition home or self-care (01) ==
LOC: ER 21:01
PROC: 0HQGXZZ Repair Left Hand Skin, External Approach (ICD-10-PCS; principal; 2017-08-19)
DX: S61.211A Laceration without foreign body of left index finger without damage to nail, initial encounter (principal); W26.0XXA Contact with knife, initial encounter; C50.919 Malignant neoplasm of unspecified site of unspecified female breast; Z23 Encounter for immunization; Z88.6 Allergy status to analgesic agent
CPT/HCPCS: 90471; 90715; 99283

== ENCOUNTER → 2017-08-30 | Outpatient (CLI) | payer OTHER ==
--- NOTE | 2017-08-31 08:47 | RADIOLOGY REPORT (SQ) ---
EXAM DESCRIPTION: PET CT SKULL/THIGH COMPLETED DATE/TIME: 08/30/2017 5:24 pm REASON FOR STUDY: BREAST CANCER C50.512 MALIG NEOPLASM OF LOWER-OUTER QUADRANT OF LEFT FEMAL COMPARISON: 05/31/2017 RADIONUCLIDE AND DOSE: 9.7 MCi F18 FDG The route of agent administration: Intravenous FASTING BLOOD SUGAR: 105 mg/dl CONTRAST TYPE AND DOSE: No CT contrast given. TECHNIQUE: Blood glucose level was verified. Above dose of FDG was injected intravenously. 2-D seg mented attenuation correction images were obtained from the base of the skull to the midthighs. Nonc ontrast CT images were obtained for attenuation correction and fusion with emission images. CT image s were performed without oral or intravenous contrast and are not sensitive for parenchymal lesions. A series of overlapping emission PET images were obtained. Images reviewed and manipulated at [facility] work station by the radiologist. Images stored on PACS. LIMITATIONS: None. FINDINGS: HEAD AND NECK: No areas of abnormal metabolic activity in the soft tissues of the head and neck. CHEST: No areas of abnormal metabolic activity in the chest. ABDOMEN AND PELVIS: No areas of abnormal metabolic activity in the abdomen or pelvis. Expected physi ologic activity is present in the genitourinary system and bowel. PROXIMAL LOWER EXTREMITIES: No areas of abnormal metabolic activity in the soft tissues of the lower extremities. BONES: No abnormal metabolic activity in the visualized skeleton. ADDITIONAL CT FINDINGS: Right axillary clips. Right-sided port tip in the SVC. OTHER: No other significant findings. IMPRESSION: No evidence of metastatic disease. TECHNICAL DOCUMENTATION: JOB ID: [id number] 1962 [employer]- All Rights Reserved Reading location - IP/workstation name: [email or web address]
== END ==
LOC: RAD 14:28
PROVIDERS: ATTEND Internal Medicine Hematology & Oncology
DX: C50.512 Malignant neoplasm of lower-outer quadrant of left female breast (principal)
CPT/HCPCS: 78815; A9552

== ENCOUNTER → 2017-09-04 | Outpatient (CLI) | payer OTHER ==
--- NOTE | 2017-09-04 15:24 | RADIOLOGY REPORT (SQ) ---
EXAM DESCRIPTION: NM MUGA REST COMPLETED DATE/TIME: 09/04/2017 3:13 pm REASON FOR STUDY: MALIG NEOPLASM OF UPPER-OUTER QUADRANT OF LEFT FEMALE BREAST C50.412 MALIG NEOPLA SM OF UPPER-OUTER QUADRANT OF LEFT FEMAL COMPARISON: 2016 and RADIONUCLIDE AND DOSE: 27.2 mCi technetium 99m labeled red blood cells The route of agent administration: Intravenous TECHNIQUE: Following administration of the radionuclide, gated images of the heart are obtained in t hree projections. Left ventricular functional analysis performed. LIMITATIONS: None. FINDINGS: LEFT VENTRICULAR FUNCTION: EJECTION FRACTION: 70%. END-DIASTOLIC VOLUME: 176 mL. END-SYSTOLIC VOLUME: 46 mL. WALL MOTION: No focal wall motion abnormalities. OTHER: No other significant finding. IMPRESSION: NORMAL CARDIAC MUGA STUDY. NORMAL LEFT VENTRICULAR FUNCTION WITH VALUES ABOVE. TECHNICAL DOCUMENTATION: JOB ID: [id number] [employer]- All Rights Reserved Reading location - IP/workstation name: [email or web address]
== END ==
LOC: RAD 13:34
PROVIDERS: ATTEND Internal Medicine
DX: C50.412 Malignant neoplasm of upper-outer quadrant of left female breast (principal); Z08 Encounter for follow-up examination after completed treatment for malignant neoplasm
CPT/HCPCS: 78472; A9560; Q9969

== ENCOUNTER → 2017-12-01 | Outpatient (CLI) | payer OTHER ==
--- NOTE | 2017-12-02 09:46 | RADIOLOGY REPORT (SQ) ---
EXAM DESCRIPTION: PET CT SKULL/THIGH COMPLETED DATE/TIME: 12/01/2017 9:18 pm REASON FOR STUDY: MALIG NEOPLASM OF LOWER-OUTER QUADRANT OF LEFT FEMALE BREAST C50.512 MALIG NEOPLA SM OF LOWER-OUTER QUADRANT OF LEFT FEMAL COMPARISON: PET-CT 02/10/2017, 05/31/2017 RADIONUCLIDE AND DOSE: 12.9 mCi F18 FDG The route of agent administration: Intravenous FASTING BLOOD SUGAR: 88 mg/dl CONTRAST TYPE AND DOSE: No CT contrast given. TECHNIQUE: Blood glucose level was verified. Above dose of FDG was injected intravenously. 2-D seg mented attenuation correction images were obtained from the base of the skull to the midthighs. Nonc ontrast CT images were obtained for attenuation correction and fusion with emission images. CT image s were performed without oral or intravenous contrast and are not sensitive for parenchymal lesions. A series of overlapping emission PET images were obtained. Images reviewed and manipulated at [facility] work station by the radiologist. Images stored on PACS. LIMITATIONS: None. FINDINGS: HEAD AND NECK: No areas of abnormal metabolic activity in the soft tissues of the head and neck. CHEST: A cutaneous nodule is present along the right lateral chest mid axillary line, 1.6 x 0.8 cm in size with SUV of 4.0. This finding is best shown on axial image 103/303. ABDOMEN AND PELVIS: No areas of abnormal metabolic activity in the abdomen or pelvis. Expected physi ologic activity is present in the genitourinary system and bowel. PROXIMAL LOWER EXTREMITIES: No areas of abnormal metabolic activity in the soft tissues of the lower extremities. BONES: No abnormal metabolic activity in the visualized skeleton. ADDITIONAL CT FINDINGS: Post bilateral mastectomy. Right permanent central line tip superior vena ca va OTHER: Liver background activity 2.5 SUV. Blood pool background activity 1.9 SUV IMPRESSION: 1.6 x 0.8 cm cutaneous nodule in the right mid axillary line lateral chest, with SUV 4.0 . This is worrisome for malignancy TECHNICAL DOCUMENTATION: JOB ID: [id number] [employer]- All Rights Reserved Reading location - IP/workstation name: [email or web address]
== END ==
LOC: RAD 15:31
PROVIDERS: ATTEND Internal Medicine
DX: C50.512 Malignant neoplasm of lower-outer quadrant of left female breast (principal)
CPT/HCPCS: 78815; A9552

== ENCOUNTER → 2017-12-07 | Outpatient (CLI) | payer OTHER ==
--- NOTE | 2017-12-07 14:17 | RADIOLOGY REPORT (SQ) ---
EXAM DESCRIPTION: NM MUGA REST COMPLETED DATE/TIME: 12/07/2017 2:02 pm REASON FOR STUDY: C50.512 MALIGNANT NEOPLASM OF LOWER-OUTER QUADRANT OF LEFT FEMALE BREAST C50.512 MALIG NEOPLASM OF LOWER-OUTER QUADRANT OF LEFT FEMAL COMPARISON: None. RADIONUCLIDE AND DOSE: 25.7 mCi technetium 99m labeled red blood cells The route of agent administration: Intravenous TECHNIQUE: Following administration of the radionuclide, gated images of the heart are obtained in t hree projections. Left ventricular functional analysis performed. LIMITATIONS: None. FINDINGS: LEFT VENTRICULAR FUNCTION: EJECTION FRACTION: 72%. END-DIASTOLIC VOLUME: 155 mL. END-SYSTOLIC VOLUME: 38 mL. WALL MOTION: No focal wall motion abnormalities. OTHER: No other significant finding. IMPRESSION: NORMAL CARDIAC MUGA STUDY. NORMAL LEFT VENTRICULAR FUNCTION WITH VALUES ABOVE. TECHNICAL DOCUMENTATION: JOB ID: [id number] [employer]- All Rights Reserved Reading location - IP/workstation name: [email or web address]
== END ==
LOC: RAD 10:40
PROVIDERS: ATTEND Internal Medicine
DX: C50.512 Malignant neoplasm of lower-outer quadrant of left female breast (principal)
CPT/HCPCS: 78472; A9560; Q9969

== ENCOUNTER 2017-12-24 10:10 | Day surgery (SDC) | payer OTHER ==
[2017-12-24] MEDS ORDERED: LIDOCAINE 2% INJ-PF (20 MG/ML) 10 ML AMPUL ONE (12:02)
[2017-12-24] MEDS ORDERED: FENTANYL CITRATE INJ/PF 100 MCG/2 ML AMPUL ONE (12:02)
[2017-12-24] MEDS ORDERED: MIDAZOLAM HCL SYRUP 10 MG/5 ML UDC ONE (12:03)
[2017-12-24] MEDS ORDERED: PROPOFOL INJ 200 MG/20 ML VIAL IV ONE ×2 (12:03→13:30)
[2017-12-24] MEDS ORDERED: MIDAZOLAM 2 MG/2 ML INJ ONE (12:05)
[2017-12-24] MEDS ORDERED: BUPIVACAINE HCL 0.5 % INJ/PF 30 ML SDV ONE (12:42)
[2017-12-24] MEDS ORDERED: CEFAZOLIN 1 GM/D5W RTU 2 GM/100 ML RTUPB IV ONE (12:54)
--- NOTE | 2017-12-24 13:33 | Discharge Summary ---
Discharge Summary (SDC) - Discharge Final Diagnosis: Right chest wall nodule, history of breast cancer Date of Surgery: 12/24/17 Discharge Date: 12/24/17 Condition: Stable Forms: [facility] Discharge Plan Treatment or Instructions: Discharge home. Diet as tolerated. Activity, nonstrenuous. Follow-up with me in 7-10 days. [place] 5/325 mg p.o. every 6 hours as needed for pain. Okay to shower in 48 hours. No tub baths or swimming pools times 2 weeks. Referrals: BECCA ALEJANDRE MD [ACTIVE STAFF] - Discharge Diet: As Tolerated Respiratory Treatments at Home: Deep Breathing/Coughing, Incentive Spirometer Discharge Activity: Balance Activity w/Rest Home Care Assistance: None Needed Report the Following to Your Physician Immediately: Shortness of Breath, Nausea , Vomiting, Increase in Pain, Fever over 101 Degrees, Unusual Bleeding, Redness , Swelling, Warmth
--- NOTE | 2017-12-24 13:37 | Operative Report ---
Nonrecallable Operative Report DATE OF SURGERY: 12/24/17 PREOPERATIVE DIAGNOSIS: Right chest wall nodule, history of breast cancer POSTOPERATIVE DIAGNOSIS: Same as above OPERATION: 1. Excision of skin and soft tissue nodule (7 x 4 cm), right chest wall. 2. Intermediate closure of 7 cm right chest wall incision. SURGEON: BECCA ALEJANDRE ANESTHESIA: LMAC TISSUE REMOVED OR ALTERED: 4 x 7 cm area of skin and fatty soft tissue. COMPLICATIONS: None apparent ESTIMATED BLOOD LOSS: Minimal PROCEDURE: Drains/implants: None. Procedure in detail: After informed consent was obtained, the patient was brought into the operating room and laid in the supine position. The area of the right chest was prepped and draped in a normal sterile fashion. A 15 blade scalpel was used to create an incision in elliptical fashion around the right chest wall nodule. Dissection was carried to the muscles of the chest wall using Bovie electrocautery. The area excised measured 7 x 4 cm. The incision was then closed in layers. The subcutaneous tissue was closed using 3-0 Vicryl suture in simple interrupted fashion. The overlying skin was closed using 4-0 Vicryl Rapide suture in subcuticular fashion. A dressing was placed, and the procedure was concluded. All sponge, instrument, and needle counts were correct x2.
== END 2017-12-24 14:12 | disposition home or self-care (01) ==
LOC: SC 10:10
PROVIDERS: ATTEND Surgery
DX: C79.81 Secondary malignant neoplasm of breast (principal); C50.911 Malignant neoplasm of unspecified site of right female breast; M19.90 Unspecified osteoarthritis, unspecified site; Z85.3 Personal history of malignant neoplasm of breast; Z87.891 Personal history of nicotine dependence
CPT/HCPCS: 88307 ×2; 21550; J2250; J3490 ×2; J0690; J3010; J2704; 400

== ENCOUNTER → 2018-02-24 | Outpatient (CLI) | payer OTHER ==
--- NOTE | 2018-02-24 14:09 | RADIOLOGY REPORT (SQ) ---
EXAM DESCRIPTION: NM MUGA REST COMPLETED DATE/TIME: 02/24/2018 12:59 pm REASON FOR STUDY: ENCTR FOR CHEMO (Z51.11), BREAST CA (C50.512) C50.512 MALIG NEOPLASM OF LOWER-OUT ER QUADRANT OF LEFT FEMAL Z51.11 ENCOUNTER FOR ANTINEOPLASTIC CHEMOTHERAPY COMPARISON: None. RADIONUCLIDE AND DOSE: 26.1 mCi technetium 99m labeled red blood cells The route of agent administration: Intravenous TECHNIQUE: Following administration of the radionuclide, gated images of the heart are obtained in t hree projections. Left ventricular functional analysis performed. LIMITATIONS: None. FINDINGS: LEFT VENTRICULAR FUNCTION: EJECTION FRACTION: 70%. END-DIASTOLIC VOLUME: 159 mL. END-SYSTOLIC VOLUME: 48 mL. WALL MOTION: No focal wall motion abnormalities. OTHER: No other significant finding. IMPRESSION: NORMAL CARDIAC MUGA STUDY. NORMAL LEFT VENTRICULAR FUNCTION WITH VALUES ABOVE. TECHNICAL DOCUMENTATION: JOB ID: [id number] [employer]- All Rights Reserved Reading location - IP/workstation name: [email or web address]
== END ==
LOC: RAD 09:36
PROVIDERS: ATTEND Internal Medicine
DX: C50.512 Malignant neoplasm of lower-outer quadrant of left female breast (principal)
CPT/HCPCS: 78472; A9560; Q9969

== ENCOUNTER → 2018-04-20 | Outpatient (CLI) | payer OTHER ==
--- NOTE | 2018-04-21 08:54 | RADIOLOGY REPORT (SQ) ---
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 RADIONUCLIDE AND DOSE: 10 mCi F18 FDG The route of agent administration: Intravenous FASTING BLOOD SUGAR: 87 mg/dl CONTRAST TYPE AND DOSE: No CT contrast given. TECHNIQUE: Blood glucose level was verified. Above dose of FDG was injected intravenously. 2-D seg mented attenuation correction images were obtained from the base of the skull to the midthighs. Nonc ontrast CT images were obtained for attenuation correction and fusion with emission images. CT image s were performed without oral or intravenous contrast and are not sensitive for parenchymal lesions. A series of overlapping emission PET images were obtained. Images reviewed and manipulated at [email or web address] by the radiologist. Images stored on PACS. LIMITATIONS: None. FINDINGS: HEAD AND NECK: No areas of abnormal metabolic activity in the soft tissues of the head and neck. CHEST: The previously seen hypermetabolic nodule in the soft tissues of the right lateral chest wall has been resected. Residual density in the subcutaneous tissues with mean SUV 2.04 consistent with p ostsurgical changes. No areas of abnormal metabolic activity in the chest. ABDOMEN AND PELVIS: No areas of abnormal metabolic activity in the abdomen or pelvis. Expected physi ologic activity is present in the genitourinary system and bowel. PROXIMAL LOWER EXTREMITIES: No areas of abnormal metabolic activity in the soft tissues of the lower extremities. BONES: No abnormal metabolic activity in the visualized skeleton. ADDITIONAL CT FINDINGS: Bilateral mastectomy. Vascular port. No additional significant findings on the noncontrast CT images. OTHER: Background blood pool activity mean SUV 2.04. Background liver activity mean SUV 2.98. No ot her significant findings. IMPRESSION: INTERVAL RESECTION OF THE SOFT TISSUE MASS IN THE LATERAL RIGHT CHEST WALL. RESIDUAL DE NSITY IN THE SUBCUTANEOUS TISSUES WITH MEAN SUV 2.04 IS FELT TO REPRESENT POSTSURGICAL CHANGE. OTHER FRY UNREMARKABLE PET-CT. NO EVIDENCE OF OTHER METASTATIC LESIONS. TECHNICAL DOCUMENTATION: JOB ID: [id number] [employer]- All Rights Reserved Reading location - IP/workstation name: [email or web address]
== END ==
LOC: RAD 18:43
PROVIDERS: ATTEND Internal Medicine
DX: C50.411 Malignant neoplasm of upper-outer quadrant of right female breast (principal); Z90.13 Acquired absence of bilateral breasts and nipples
CPT/HCPCS: 78815; A9552

== ENCOUNTER → 2018-05-31 | Outpatient (CLI) | payer OTHER ==
--- NOTE | 2018-05-31 13:11 | RADIOLOGY REPORT (SQ) ---
EXAM DESCRIPTION: NM MUGA REST COMPLETED DATE/TIME: 05/31/2018 12:39 pm REASON FOR STUDY: ENCTR FOR ANTINEOPLASTIC CHEMO (Z51.11) Z51.11 ENCOUNTER FOR ANTINEOPLASTIC CHEMO THERAPY COMPARISON: 02/24/2018, 12/07/2017, 06/06/2016, 09/12/2015 RADIONUCLIDE AND DOSE: 26.8 mCi technetium 99m labeled red blood cells The route of agent administration: Intravenous TECHNIQUE: Following administration of the radionuclide, gated images of the heart are obtained in t hree projections. Left ventricular functional analysis performed. LIMITATIONS: None. FINDINGS: LEFT VENTRICULAR FUNCTION: EJECTION FRACTION: 67%. END-DIASTOLIC VOLUME: 138 mL. END-SYSTOLIC VOLUME: 42 mL. WALL MOTION: No focal wall motion abnormalities. OTHER: No other significant finding. IMPRESSION: NORMAL CARDIAC MUGA STUDY. NORMAL LEFT VENTRICULAR FUNCTION of 67%. TECHNICAL DOCUMENTATION: JOB ID: [id number] [employer]- All Rights Reserved Reading location - IP/workstation name: [email or web address]
== END ==
LOC: RAD 10:30
PROVIDERS: ATTEND Internal Medicine
DX: Z51.11 Encounter for antineoplastic chemotherapy (principal)
CPT/HCPCS: 78472; A9560; Q9969

== ENCOUNTER → 2018-08-10 | Outpatient (CLI) | payer OTHER ==
--- NOTE | 2018-08-10 16:12 | RADIOLOGY REPORT (SQ) ---
EXAM DESCRIPTION: NM MUGA REST COMPLETED DATE/TIME: 08/10/2018 2:54 pm REASON FOR STUDY: MONITORING FOR HERCEPTIN (Z08) Z08 ENCNTR FOR FOLLOW-UP EXAM AFTER TRTMT FOR GEOVANNY VELEZP COMPARISON: 05/31/2018, 02/24/2018, 12/07/2017, 06/06/2016 MUGA scans RADIONUCLIDE AND DOSE: 26.0 mCi technetium 99m labeled red blood cells The route of agent administration: Intravenous TECHNIQUE: Following administration of the radionuclide, gated images of the heart are obtained in t hree projections. Left ventricular functional analysis performed. LIMITATIONS: None. FINDINGS: LEFT VENTRICULAR FUNCTION: EJECTION FRACTION: 76%. END-DIASTOLIC VOLUME: 171 mL. END-SYSTOLIC VOLUME: 42 mL. WALL MOTION: No focal wall motion abnormalities. OTHER: No other significant finding. IMPRESSION: NORMAL CARDIAC MUGA STUDY. NORMAL LEFT VENTRICULAR ejection fraction estimated at 76%. TECHNICAL DOCUMENTATION: JOB ID: [id number] [employer]- All Rights Reserved Reading location - IP/workstation name: [email or web address]
== END ==
LOC: RAD 12:43
PROVIDERS: ATTEND Internal Medicine
DX: Z08 Encounter for follow-up examination after completed treatment for malignant neoplasm (principal); Z79.899 Other long term (current) drug therapy
CPT/HCPCS: 78472; A9560; Q9969

== ENCOUNTER → 2018-10-03 | Outpatient (CLI) | payer OTHER ==
--- NOTE | 2018-10-04 09:54 | RADIOLOGY REPORT (SQ) ---
EXAM DESCRIPTION: PET CT SKULL/THIGH COMPLETED DATE/TIME: 10/04/2018 1:08 am REASON FOR STUDY: (C50.411)HERNESTOIG NEOPLM OF UPPER-OUTER QUADRANT OF RIGHT FEMALE BREAST C50.411 GEOVANNY G NEOPLM OF UPPER-OUTER QUADRANT OF RIGHT FEMALE COMPARISON: Prior PET-CT 04/20/2018, 12/01/2017, 09/14/2016, 02/01/2016, 12/08/2014 RADIONUCLIDE AND DOSE: 10.3 mCi F18 FDG The route of agent administration: Intravenous FASTING BLOOD SUGAR: 102 mg/dl CONTRAST TYPE AND DOSE: No CT contrast given. TECHNIQUE: Blood glucose level was verified. Above dose of FDG was injected intravenously. 2-D seg mented attenuation correction images were obtained from the base of the skull to the midthighs. Nonc ontrast CT images were obtained for attenuation correction and fusion with emission images. CT image s were performed without oral or intravenous contrast and are not sensitive for parenchymal lesions. A series of overlapping emission PET images were obtained. Images reviewed and manipulated at [facility] work station by the radiologist. Images stored on PACS. LIMITATIONS: None. FINDINGS: HEAD AND NECK: No areas of abnormal metabolic activity in the soft tissues of the head and neck. CHEST: Along the right lower lateral chest, there is skin thickening and increased density of the sub cutaneous fat in the mid axillary line, from about the 5th rib spanning down to the right iliac crest . This is more widespread than on 04/20/[address] exam, without focal discrete recurrent nodule. Th is has minimal metabolic activity with SUV ranging from 1.1 to 2.0 (SUV values are stable compared to 04/20/2018). Patient is post bilateral mastectomy and axillary dissection. No worrisome hypermetabolic lesions in these areas. ABDOMEN AND PELVIS: No areas of abnormal metabolic activity in the abdomen or pelvis. Expected physi ologic activity is present in the genitourinary system and bowel. PROXIMAL LOWER EXTREMITIES: No areas of abnormal metabolic activity in the soft tissues of the lower extremities. BONES: No abnormal metabolic activity in the visualized skeleton. ADDITIONAL CT FINDINGS: Right-sided permanent central line tip superior vena cava OTHER: Liver background activity 2.6 SUV. Blood pool background activity 1.7 SUV. IMPRESSION: Post therapeutic changes over the right lateral chest with minimal stable metabolic acti [employer] TECHNICAL DOCUMENTATION: JOB ID: [id number] [employer]- All Rights Reserved Reading location - IP/workstation name: [email or web address]
== END ==
LOC: RAD 16:56
PROVIDERS: ATTEND Physician Assistant Medical
DX: C50.411 Malignant neoplasm of upper-outer quadrant of right female breast (principal)
CPT/HCPCS: 78815; A9552

== ENCOUNTER 2018-12-19 19:42 | Observation (INO) | payer BC, OTHER ==
[2018-12-19] MEDS ORDERED: ONDANSETRON HCL INJ/PF 4 MG/2 ML SDV IV ONE (20:23)
[2018-12-19] MEDS ORDERED: OXYCODONE-ACETAMINOPHEN 5-325 MG TABLET PO ONE (20:23)
[2018-12-19] MEDS ORDERED: NORMAL SALINE 1000 ML 1,000 ML IV ONE ×2 (20:23→23:08)
--- NOTE | 2018-12-19 20:24 | ER Document Report ---
ED Medical Screen (RME) - General Chief Complaint: Abdominal Pain Stated Complaint: ABDOMINAL PAIN Time Seen by Provider: 12/19/18 20:16 Primary Care Provider: GUANAKO MARKS FNP-C [Primary Care Provider] - Follow up as needed Information source: Patient Notes: Patient presents complaining of nausea and diarrhea with abdominal pain to the periumbilical area that started to radiate to the epigastric and right lower quadrant. Patient denies any urinary symptoms. Patient denies any fever. I have greeted and performed a rapid initial assessment of this patient. A comprehensive ED assessment and evaluation of the patient, analysis of test results and completion of the medical decision making process will be conducted by additional ED providers. TRAVEL OUTSIDE OF THE [place] IN LAST 30 DAYS: No - Related Data Allergies/Adverse Reactions: codeine [Codeine] Allergy (Severe, Verified 06/22/13 14:41) SOB, swelling Home Medications: Potassium and Calcium supplements Past Medical History - Past Medical History Cardiac Medical History: Denies: Hx Atrial Fibrillation, Hx Congestive Heart Failure, Hx Coronary Artery Disease, Hx Heart Attack, Hx Hypercholesterolemia, Hx Hypertension, Hx Peripheral Vascular Disease, Hx Heart Murmur Pulmonary Medical History: Denies: Hx Asthma, Hx Bronchitis, Hx COPD, Hx Pneumonia Neurological Medical History: Reports: Hx Seizures - 1993 HEAD INJURY FROM PLAYING SOCCER RESULTED IN SEIZURE. Denies: Hx Cerebrovascular Accident, Hx Parkinson's Disease Renal/ Medical History: Denies: Hx Ovarian Cysts, Hx Peritoneal Dialysis, Hx Pelvic Inflammatory Disease Malignancy Medical History: Reports: Hx Breast Cancer. Denies: Hx Cervical Cancer, Hx Ovarian Cancer GI Medical History: Denies: Hx Crohn's Disease, Hx Gastroesophageal Reflux Disease, Hx Hepatitis, Hx Hiatal Hernia, Hx Irritable Bowel, Hx Liver Failure, Hx Pancreatitis, Hx Ulcer Musculoskeltal Medical History: Reports Hx Arthritis, Denies Hx Fibromyalgia, Denies Hx Multiple Sclerosis, Denies Hx Muscular Dystrophy Psychiatric Medical History: Reports: Hx Post Traumatic Stress Disorder Denies: Hx Bipolar Disorder, Hx Dementia, Hx Depression, Hx Schizophrenia Traumatic Medical History: Reports: Hx Fractures - LT FOOT Infectious Medical History: Denies: Hx Hepatitis Past Surgical History: Reports: Hx Mastectomy - RIGHT, Hx Tonsillectomy. Denies: Hx Appendectomy, Hx Bowel Surgery, Hx Section, Hx Cholecystectomy, Hx Colostomy, Hx Coronary Artery Bypass Graft, Hx Gastric Bypass Surgery, Hx Herniorrhaphy, Hx Hysterectomy, Hx Open Heart Surgery, Hx Pacemaker, Hx Tubal Ligation - Immunizations Hx Diphtheria, Pertussis, Tetanus Vaccination: Yes - Not positive Physical Exam - Vital signs Vitals: Temp Pulse Resp BP Pulse Ox 98.6 F 73 16 150/79 H 99 12/19/18 20:02 12/19/18 20:02 12/19/18 20:02 12/19/18 20:02 12/19/18 20:02 - Abdominal Tenderness: Tender - Periumbilical, right lower quadrant, epigastric Course - Vital Signs Vital signs: Temp Pulse Resp BP Pulse Ox 98.6 F 73 16 150/79 H 99 12/19/18 20:02 12/19/18 20:02 12/19/18 20:02 12/19/18 20:02 12/19/18 20:02 Doctor's Discharge - Discharge Referrals: GUANAKO MARKS FNP-C [Primary Care Provider] - Follow up as needed
[2018-12-19 21:05] LABS: HEMATOCRIT 37.9 % (36.0-47.0); MEAN CORPUSCULAR HGB CONC 34.3 g/dL (32.0-36.0); MEAN CORPUSCULAR VOLUME 94 fl (80-97); PLATELET COUNT 316 10^3/uL (150-450); RED BLOOD COUNT 4.06 10^6/uL (3.72-5.28); RED CELL DISTRIBUTION WIDTH 14.5 % (11.5-14.0); WHITE BLOOD COUNT 13.9 10^3/uL (4.0-10.5)
[2018-12-19 21:22] LABS: APPEARANCE,URINE CLEAR; BILIRUBIN,URINE NEGATIVE (NEGATIVE); COLOR,URINE YELLOW; GLUCOSE, URINE NEGATIVE (NEGATIVE); KETONES,URINE NEGATIVE (NEGATIVE); PROTEIN,URINE NEGATIVE (NEGATIVE); URINE SPECIFIC GRAVITY 1.023; UROBILINOGEN,URINE NEGATIVE mg/dL (<2.0)
[2018-12-19 21:24] LABS: ALBUMIN 4.8 g/dL (3.5-5.0); ALKALINE PHOSPHATASE 82 U/L (38-126); ANION GAP 15 (5-19); ASPARTATE AMINO TRANSFERASE 28 U/L (14-36); BILIRUBIN,DIRECT 0.1 mg/dL (0.0-0.4); BILIRUBIN,TOTAL 0.7 mg/dL (0.2-1.3); BLOOD UREA NITROGEN 14 mg/dL (7-20); CALCIUM 9.6 mg/dL (8.4-10.2); CARBON DIOXIDE 21 mmol/L (22-30); CHLORIDE 103 mmol/L (98-107); GLUCOSE 132 mg/dL (75-110); POTASSIUM 3.9 mmol/L (3.6-5.0); TOTAL PROTEIN 7.8 g/dL (6.3-8.2)
[2018-12-19 21:29] LABS: ABSOLUTE LYMPHOCYTES# (MANUAL) 0.8 10^3/uL (0.5-4.7); ABSOLUTE MONOCYTES # (MANUAL) 0.1 10^3/uL (0.1-1.4); ANISOCYTOSIS SLIGHT; BAND NEUTROPHILS % (MANUAL) 6 % (3-5); BASOPHILS % (MANUAL) 0 % (0-2); EOSINOPHILS % (MANUAL) 0 % (0-6); LYMPHOCYTES % (MANUAL) 6 % (13-45); MONOCYTES % (MANUAL) 1 % (3-13); SEGMENTED NEUTROPHILS % (MAN) 87 % (42-78); TOTAL CELLS COUNTED 100
[2018-12-19 21:30] LABS: PLATELET COMMENT ADEQUATE
--- NOTE | 2018-12-19 22:58 | RADIOLOGY REPORT (SQ) ---
EXAM DESCRIPTION: CT ABDOMEN PELVIS WITH IV CONTRAST COMPLETED DATE/TME: 12/19/2018 21:37 CLINICAL HISTORY: 43 years, Female, RLQ pain. HCG NEG This exam was performed according to our departmental dose-optimization program which includes automated exposure control, adjustment of the mA and/or kVp according to patient size and/or use of iterative reconstruction technique where applicable. FINDINGS: Visualized lung bases are within normal limits. Liver, spleen, pancreas, gallbladder, adrenal glands and kidneys are within normal limits. No hydronephrosis or biliary dilatation. No dilated loops of bowel to suggest obstruction. Mild amount of stool in the colon. No abdominal or pelvic lymphadenopathy. The bladder is unremarkable. Gynecologic organs are unremarkable. No free fluid or free air. IMPRESSION: No acute disease.
[2018-12-19] MEDS ORDERED: ACETAMINOPHEN 325 MG TABLET PO ONE (23:07)
[2018-12-19] MEDS ORDERED: MORPHINE SULFATE 10 MG/ML INJ IV ONE (23:08)
--- NOTE | 2018-12-19 23:09 | ER Document Report ---
ED GI/ - General Chief Complaint: Abdominal Pain Stated Complaint: ABDOMINAL PAIN Time Seen by Provider: 12/19/18 20:16 Primary Care Provider: GUANAKO MARKS FNP-C [NO LOCAL MD] - Follow up as needed Information source: Patient Notes: Ms. Shook is a 43 yo F w/ PMH breast cancer status post bilateral mastectomy as well as chemo and radiation, osteopenia and arthritis presenting to the ED for abdominal pain. Patient states that she was sitting on the couch earlier today about to get in the shower when she developed sudden lower abdominal pain. She states the pain initially was suprapubic/periumbilical but has since moved to the right lower quadrant. She states it feels like a hot poker is in her abdomen. She endorses nausea without any episodes of vomiting. Decreased appetite. She endorses subjective fever and chills. Denies any chest pain, cough or shortness of breath. Patient denies any other previous surgical intervention to her abdomen pelvis. She denies any dysuria or increased urinary frequency. Her last meal was approximately at 2:30PM this afternoon. She adds that on the drive over, every single speed bump or even a pothole hurt her abdomen significantly. TRAVEL OUTSIDE OF THE [place] IN LAST 30 DAYS: No - Related Data Allergies/Adverse Reactions: codeine [Codeine] Allergy (Severe, Verified 06/22/13 14:41) SOB, swelling Home Medications: Potassium and Calcium supplements Past Medical History - General Information source: Patient - Social History Smoking Status: Never Smoker Family History: Reviewed & Not Pertinent Patient has suicidal ideation: No Patient has homicidal ideation: No - Past Medical History Cardiac Medical History: Denies: Hx Atrial Fibrillation, Hx Congestive Heart Failure, Hx Coronary Artery Disease, Hx Heart Attack, Hx Hypercholesterolemia, Hx Hypertension, Hx Peripheral Vascular Disease, Hx Heart Murmur Pulmonary Medical History: Denies: Hx Asthma, Hx Bronchitis, Hx COPD, Hx Pneumonia Neurological Medical History: Reports: Hx Seizures - 1993 HEAD INJURY FROM PLAYING SOCCER RESULTED IN SEIZURE. Denies: Hx Cerebrovascular Accident, Hx Parkinson's Disease Renal/ Medical History: Denies: Hx Ovarian Cysts, Hx Peritoneal Dialysis, Hx Pelvic Inflammatory Disease Malignancy Medical History: Reports: Hx Breast Cancer. Denies: Hx Cervical Cancer, Hx Ovarian Cancer GI Medical History: Denies: Hx Crohn's Disease, Hx Gastroesophageal Reflux Disease, Hx Hepatitis, Hx Hiatal Hernia, Hx Irritable Bowel, Hx Liver Failure, Hx Pancreatitis, Hx Ulcer Musculoskeletal Medical History: Reports Hx Arthritis, Denies Hx Fibromyalgia, Denies Hx Multiple Sclerosis, Denies Hx Muscular Dystrophy Psychiatric Medical History: Reports: Hx Post Traumatic Stress Disorder Denies: Hx Bipolar Disorder, Hx Dementia, Hx Depression, Hx Schizophrenia Traumatic Medical History: Reports: Hx Fractures - LT FOOT Infectious Medical History: Denies: Hx Hepatitis Past Surgical History: Reports: Hx Mastectomy - RIGHT and left, Hx Tonsillectomy, Hx Vascular Surgery - port placement. Denies: Hx Appendectomy, Hx Bowel Surgery, Hx Section, Hx Cholecystectomy, Hx Colostomy, Hx Coronary Artery Bypass Graft, Hx Gastric Bypass Surgery, Hx Herniorrhaphy, Hx Hysterectomy, Hx Open Heart Surgery, Hx Pacemaker, Hx Tubal Ligation - Immunizations Hx Diphtheria, Pertussis, Tetanus Vaccination: Yes - Not positive Review of Systems - Review of Systems Constitutional: See HPI EENT: No symptoms reported Cardiovascular: No symptoms reported Respiratory: No symptoms reported Gastrointestinal: See HPI Genitourinary: No symptoms reported Female Genitourinary: No symptoms reported Musculoskeletal: No symptoms reported Skin: No symptoms reported Hematologic/Lymphatic: No symptoms reported Neurological/Psychological: No symptoms reported Physical Exam - Vital signs Vitals: Temp Pulse Resp BP Pulse Ox 98.6 F 73 16 150/79 H 99 12/19/18 20:02 12/19/18 20:02 12/19/18 20:02 12/19/18 20:02 12/19/18 20:02 Interpretation: Hypertensive - General General appearance: Appears well, Alert In distress: Mild - HEENT Head: Normocephalic, Atraumatic Eyes: Normal Pupils: PERRL - Respiratory Respiratory status: No respiratory distress Chest status: Nontender Breath sounds: Normal Chest palpation: Normal - Cardiovascular Rhythm: Regular Heart sounds: Normal auscultation Murmur: No - Abdominal Inspection: Normal Distension: No distension Bowel sounds: Normal Tenderness: Tender - Tenderness in the right lower quadrant with voluntary guarding. Mild rebound., McBurney's point, Guarding, Rebound Organomegaly: No organomegaly - Back Back: Normal, Nontender - Extremities General upper extremity: Normal inspection, Nontender, Normal color, Normal ROM, Normal temperature General lower extremity: Normal inspection, Nontender, Normal color, Normal ROM, Normal temperature, Normal weight bearing. No: Ritika's sign - Neurological Neuro grossly intact: Yes Cognition: Normal Orientation: AAOx4 [place] Coma Scale Eye Opening: Spontaneous [place] Coma Scale Verbal: Oriented [place] Coma Scale Motor: Obeys Commands [place] Coma Scale Total: 15 Speech: Normal Motor strength normal: LUE, RUE, LLE, RLE Sensory: Normal - Psychological Associated symptoms: Normal affect, Normal mood - Skin Skin Temperature: Warm Skin Moisture: Dry Skin Color: Normal Course - Re-evaluation Re-evalutation: Patient is generally well-appearing and nontoxic but appears uncomfortable. Initial vitals notable for mildly elevated blood pressure. Patient felt warm to touch so I reassessed her temperature myself and it was notable for temperature of 99.9 orally. Differential diagnosis includes pyelonephritis, nephrolithiasis, appendicitis (most likely), cystitis 12/19/18 23:19 Labs notable for leukocytosis with a left shift. CMP is within normal limits. UA does show blood in the urine however I do not feel that this is consistent with nephrolithiasis. Physical examination with guarding and the remainder of the patient's description of her symptoms is consistent with appendicitis. 12/19/18 23:20 CT read states no acute findings however the body of the CT does not indicate any reference or refer to the appendix in any way whether it be unremarkable or even visualized. I personally called radiology and left a message with the radiology assistant to have another radiologist reassess the scan. 12/19/18 23:28 Chief call from a different radiology attending. CT is positive for appendicitis with 1.7 cm appendix, inflamed, nonruptured with fecalith. New radiology attending will add addendum to CT read. 12/19/18 23:[address] Cadet in OR w/ laporotomy. Call answered by ASTON Alford. Dr. Cadet aware. Would like Zosyn if patient has no allergies. Will see pt when out of OR. 12/20/18 00:41 Patient will likely be taken to the OR in the a.m. Already received 2 L of fluid as well as Zosyn. - Vital Signs Vital signs: Temp Pulse Resp BP Pulse Ox 99.9 F 73 16 150/79 H 99 12/19/18 23:27 12/19/18 20:02 12/19/18 20:02 12/19/18 20:02 12/19/18 20:02 - Laboratory Result Diagrams: 12/19/18 20:24 12/19/18 20:24 Laboratory results interpreted by me: 12/19/18 12/19/18 12/19/18 20:24 20:24 20:24 WBC 13.9 H RDW 14.5 H Seg Neuts % (Manual) 87 H Band Neutrophils % 6 H Lymphocytes % (Manual) 6 L Monocytes % (Manual) 1 L Abs Neuts (Manual) 12.9 H Carbon Dioxide 21 L Glucose 132 H Urine Blood MODERATE H Discharge - Discharge Clinical Impression: Appendicitis, Leukocytosis Condition: Good Disposition: ADMITTED INPATIENT Admitting Provider: Surgicalist Unit Admitted: Surgical Floor Referrals: GUANAKO MARKS FNP-C [NO LOCAL MD] - Follow up as needed
[2018-12-19] MEDS ORDERED: PIPERACILLIN/TAZOBACTAM 3.375 GM VIAL IV ONE (23:37)
[2018-12-20] MEDS ORDERED: MORPHINE SULFATE 10 MG/ML INJ IV ONE (01:12)
[2018-12-20] MEDS ORDERED: DEXTROSE 50%-WATER 25 GM/50 ML DISP.SYRIN IV PRN ×2 (02:00)
[2018-12-20] MEDS ORDERED: GLUCAGON,HUMAN RECOMB 1 MG INJ SUBCUT PRN (02:00)
[2018-12-20] MEDS ORDERED: DEXTROSE 40% GEL 15 GM TUBE PO PRN ×2 (02:00)
--- NOTE | 2018-12-20 02:00 | PDOC H&P ---
History of Present Illness Admission Date/PCP: 12/20/18 00:[facility] Patient complains of: Right lower quadrant pain History of Present Illness: RICHELLE DICK is a 43 year old female, with a history of bilateral breast cancer, who presents to the emergency room complaining of right upper quadrant pain intense nausea. A CT scan of the abdomen pelvis has been done revealing acute appendicitis, nonperforated. Past Medical History Cardiac Medical History: Denies: Atrial Fibrillation, Congestive Heart Failure, Coronary Artery Disease, Myocardial Infarction, Hyperlipidema, Hypertension, Peripheral Vascular Disease, Heart Murmur Pulmonary Medical History: Denies: Asthma, Bronchitis, Chronic Obstructive Pulmonary Disease (COPD), Pneumonia Neurological Medical History: Reports: Seizures - 1993 HEAD INJURY FROM PLAYING SOCCER RESULTED IN SEIZURE Malignancy Medical History: Reports: Breast Cancer Denies: Cervical Cancer, Ovarian Cancer GI Medical History: Denies: Crohn's Disease, Gastroesophageal Reflux Disease, Hepatitis, Hiatal Hernia Musculoskeltal Medical History: Reports: Arthritis Denies: Fibromyalgia Psychiatric Medical History: Reports: Post Traumatic Stress Disorder Denies: Bipolar Disorder, Dementia, Depression Hematology: Reports: Anemia - with chemo Denies: Sickle Cell Disease Past Surgical History Past Surgical History: Reports: Mastectomy - RIGHT and left, Tonsillectomy, Vascular Surgery - port placement Denies: Amputation, Appendectomy, Section, Cholecystectomy, Colostomy, Coronary Artery Bypass Graft, Gastric Bypass Surgery, Herniorrhaphy, Hysterectomy, Pacemaker, Tubal Ligation Social History Smoking Status: Never Smoker Frequency of Alcohol Use: Social Hx Recreational Drug Use: No Drugs: None Hx Prescription Drug Abuse: No Family History Family History: Reviewed & Not Pertinent Parental Family History Reviewed: Yes - Diabetes Children Family History Reviewed: No Sibling(s) Family History Reviewed.: No Medication/Allergy Home Medications: Anastrozole [Arimidex] 1 mg PO DAILY 11/20/16 Leuprolide Acetate [Lupron Depot Inj 7.5 Mg Kit] 7.5 mg IM .MONTHLY 12/22/17 Trastuzumab [Herceptin Inj 150 mg Vial] 150 mg IV .3WEEKS 12/22/17 Hydrocodone/Acetaminophen [[place] 5-325 mg Tablet] 1 tab PO .EVERY 6 H PRN 12/24/17 Allergies/Adverse Reactions: codeine [Codeine] Allergy (Severe, Verified 06/22/13 14:41) SOB, swelling Physical Exam Vital Signs: Temp Pulse Resp BP Pulse Ox 98.1 F 98 18 135/99 H 100 12/20/18 01:25 12/20/18 01:25 12/20/18 01:25 12/20/18 01:25 12/20/18 01:25 Intake & Output 12/18/18 12/19/18 12/20/18 06:59 06:59 06:59 Intake Total 1999 Balance 1999 Weight 91.9 kg General appearance: PRESENT: no acute distress Head exam: PRESENT: atraumatic, normocephalic Eye exam: PRESENT: EOMI Mouth exam: PRESENT: moist, neck supple Neck exam: PRESENT: full ROM Respiratory exam: PRESENT: chest wall tenderness Cardiovascular exam: PRESENT: RRR GI/Abdominal exam: PRESENT: guarding - Right lower quadrant, hypoactive bowel sounds, soft, tenderness - In the right lower quadrant with grimacing and guarding Rectal exam: PRESENT: deferred Extremities exam: PRESENT: full ROM Musculoskeletal exam: PRESENT: full ROM Neurological exam: PRESENT: alert, oriented to person, CN II-XII grossly intact Psychiatric exam: PRESENT: appropriate affect Skin exam: PRESENT: warm Results Laboratory Results: 12/19/18 20:24 12/19/18 20:24 12/19/18 12/19/18 12/19/18 20:24 20:24 20:24 WBC 13.9 H RBC 4.06 Hgb 13.0 Hct 37.9 MCV 94 MCH 32.0 MCHC 34.3 RDW 14.5 H Plt Count 316 Seg Neutrophils % Not Reportable Sodium 139.3 Potassium 3.9 Chloride 103 Carbon Dioxide 21 L Anion Gap 15 BUN 14 Creatinine 0.57 Est GFR ( Amer) > 60 Glucose 132 H Calcium 9.6 Total Bilirubin 0.7 AST 28 Alkaline Phosphatase 82 Total Protein 7.8 Albumin 4.8 Lipase 74.5 Serum HCG, Qual NEGATIVE Urine Color Urine Appearance Urine pH Ur Specific [place] Urine Protein Urine Glucose (UA) Urine Ketones Urine Blood Urine RBC (Auto) 12/19/18 20:24 WBC RBC Hgb Hct MCV MCH MCHC RDW Plt Count Seg Neutrophils % Sodium Potassium Chloride Carbon Dioxide Anion Gap BUN Creatinine Est GFR ( Amer) Glucose Calcium Total Bilirubin AST Alkaline Phosphatase Total Protein Albumin Lipase Serum HCG, Qual Urine Color YELLOW Urine Appearance CLEAR Urine pH 5.0 Ur Specific [place] 1.023 Urine Protein NEGATIVE Urine Glucose (UA) NEGATIVE Urine Ketones NEGATIVE Urine Blood MODERATE H Urine RBC (Auto) 12 Impressions: Abdomen/Pelvis CT 12/19/18 21:37 IMPRESSION: No acute disease. Assessment & Plan - Diagnosis (1) Appendicitis Qualifiers: Acute appendicitis type: with localized peritonitis Appendicitis gangrene presence: without gangrene Appendicitis perforation presence: without perforation Appendicitis abscess presence: without abscess Is this a current diagnosis for this admission?: Yes (2) Leukocytosis Is this a current diagnosis for this admission?: Yes - Plan Summary Plan Summary: Assessment: Right lower quadrant pain Physical exam significant for right lower quadrant pain with grimacing CT scan abdomen pelvis significant for acute nonperforated appendicitis Mild leukocytosis 13.5 History of bilateral breast cancer with bilateral mastectomy Plan: Laparoscopic appendectomy possible open Procedure, risks, benefits, complications, alternatives explained to the patient, her questions answered, and she decides to proceed Admission to floor N.p.o. IV fluids IV antibiotics Zosyn
[2018-12-20] MEDS ORDERED: ONDANSETRON HCL INJ/PF 4 MG/2 ML SDV IV PRN ×2 (02:02→13:49)
[2018-12-20] MEDS ORDERED: PIPERACILLIN/TAZOBACTAM 3.375 GM VIAL IV PRN (02:42)
[2018-12-20] MEDS ORDERED: KETOROLAC TROMETHAMINE 60 MG/2 ML SDV ONE (05:00)
[2018-12-20] MEDS ORDERED: LIDOCAINE 2% INJ-PF (20 MG/ML) 2 ML AMPUL ONE (05:00)
[2018-12-20] MEDS ORDERED: ROCURONIUM BROMIDE INJ 50 MG/5 ML VIAL IV ONE (05:00)
[2018-12-20] MEDS ORDERED: PHENYLEPHRINE HCL INJ/PF 10 MG/1 ML SDV ONE (05:00)
[2018-12-20] MEDS ORDERED: DEXAMETHASONE SOD PHOSPHATE INJ 4 MG/1 ML VIAL ONE (05:00)
[2018-12-20] MEDS ORDERED: METOCLOPRAMIDE HCL INJ/PF 10 MG/2 ML SDV ONE (05:00)
[2018-12-20] MEDS ORDERED: ONDANSETRON HCL INJ/PF 4 MG/2 ML SDV ONE (05:00)
[2018-12-20] MEDS: MORPHINE SULFATE 10 MG/ML INJ IV PRN ×2 (05:32→10:16)
[2018-12-20] MEDS ORDERED: PIPERACILLIN/TAZOBACTAM 3.375 GM VIAL IV SCH (06:00)
[2018-12-20] MEDS: PIPERACILLIN SODIUM/TAZOBACTAM 3.375 GM in NORMAL SALINE 100 ML IV SCH ×4 (06:49→23:26)
[2018-12-20] MEDS: FAMOTIDINE INJ/PF 20 MG/2 ML SDV IV SCH ×2 (10:17→21:12)
[2018-12-20] MEDS: NORMAL SALINE 1000 ML 1,000 ML IV PRN ×2 (12:24→23:32)
[2018-12-20] MEDS ORDERED: MIDAZOLAM 2 MG/2 ML INJ ONE (13:12)
[2018-12-20] MEDS ORDERED: PROPOFOL INJ 200 MG/20 ML VIAL IV ONE (13:12)
[2018-12-20] MEDS ORDERED: HYDROMORPHONE HCL INJ/PF 2 MG/ML AMPULE ONE (13:12)
[2018-12-20] MEDS ORDERED: BUPIVACAINE HCL 0.5 % INJ/PF 30 ML SDV ONE (13:16)
[2018-12-20] MEDS ORDERED: FENTANYL CITRATE INJ/PF 100 MCG/2 ML AMPUL IV PRN ×3 (13:49)
[2018-12-20] MEDS ORDERED: PROMETHAZINE HCL INJ 25 MG/1 ML VIAL IV PRN ×2 (13:49)
[2018-12-20] MEDS ORDERED: MEPERIDINE HCL/PF INJ 25 MG/1 ML DISP.SYRIN IV PRN (13:49)
[2018-12-20] MEDS ORDERED: DIPHENHYDRAMINE HCL 50 MG/ML VIAL IV PRN (13:49)
[2018-12-20] MEDS ORDERED: SUGAMMADEX SODIUM 200 MG/2 ML SDV IV ONE (14:17)
--- NOTE | 2018-12-20 14:41 | Operative Report ---
Operative Report DATE OF SURGERY: 12/20/18 PREOPERATIVE DIAGNOSIS: Acute appendicitis POSTOPERATIVE DIAGNOSIS: Acute nonperforated appendicitis OPERATION: Laparoscopic appendectomy SURGEON: NEIDA REYES ANESTHESIA: Local - 30 mL's half percent Marcaine TISSUE REMOVED OR ALTERED: Appendix COMPLICATIONS: None ESTIMATED BLOOD LOSS: Less than 5 mL INTRAOPERATIVE FINDINGS: Acute nonperforated appendicitis PROCEDURE: The procedure was done in the operating room. The patient was placed in a supine position, general anesthesia induced by endotracheal intubation, the abdomen was prepped and draped in usual fashion. An incision was made just above the umbilicus with a #15 blade, the skin was tented with towel clips and a 5 mm port with Optiview adapter and scope were inserted through the abdominal wall into the peritoneal cavity. After they CO2 pneumoperitoneum was obtained, under direct visualization a 5 mm report was inserted in the right lateral quadrant of the abdomen following skin incision. The scope was removed from the umbilical port and inserted into the right side port. The 5 mm umbilical port was removed and replaced with a 12 mm port, while the 5 mm port was inserted in left lower quadrant of the abdomen following skin incision. The patient was placed in steep Trendelenburg position with the right side elevated. The appendix was then identified by tracing the anterior tenia of the cecum, the appendix was then found, elevated, and stretched. The mesentery of the appendix was divided with the LigaSure. The appendix was found to be non-perforated. The appendix was stapled at the base with an Endo ERNESTO stapler, extracted from the peritoneal cavity with an Endobag through the umbilical port. The pneumoperitoneum was then re-established, the stapled line was examined and found to be intact. The right lower quadrant was then irrigated with normal saline until clear. The umbilical fascial defect was closed with a [id number] 0 Vicryl suture, placed with a fascia closure device under direct visualization and left untied. All instruments were removed, the pneumoperitoneum was released, and all ports were removed. The umbilical fascial defect was closed with the previously placed [id number] 0 Vicryl suture, all skin incisions were closed with a 4-0 PDS running subcuticular suture, and covered with Dermabond. The patient tolerated the procedure well, was extubated, and transferred to the recovery room in satisfactory conditions.
[2018-12-20] MEDS: ACETAMINOPHEN 1,000 MG/100 ML RTUPB IV SCH ×2 (17:15→23:26)
[2018-12-20] MEDS: KETOROLAC TROMETHAMINE INJ/PF 30 MG/1 ML SDV IV SCH ×2 (17:16→23:27)
[2018-12-20] MEDS ORDERED: ACETAMINOPHEN 1,000 MG/100 ML RTUPB IV SCH (18:00)
[2018-12-20 19:01] LABS: APPEARANCE,URINE CLEAR; BILIRUBIN,URINE NEGATIVE (NEGATIVE); COLOR,URINE YELLOW; GLUCOSE, URINE NEGATIVE (NEGATIVE); KETONES,URINE NEGATIVE (NEGATIVE); LEUKOCYTE ESTERASE,URINE NEGATIVE (NEGATIVE); NITRITE,URINE NEGATIVE (NEGATIVE); PROTEIN,URINE NEGATIVE (NEGATIVE); UROBILINOGEN,URINE NEGATIVE mg/dL (<2.0)
[2018-12-21] MEDS: ACETAMINOPHEN 1,000 MG/100 ML RTUPB IV SCH ×2 (05:27→11:34)
[2018-12-21] MEDS: PIPERACILLIN SODIUM/TAZOBACTAM 3.375 GM in NORMAL SALINE 100 ML IV SCH ×2 (05:27→12:02)
[2018-12-21] MEDS: KETOROLAC TROMETHAMINE INJ/PF 30 MG/1 ML SDV IV SCH ×2 (05:27→11:40)
[2018-12-21 05:58] LABS: ABSOLUTE LYMPHOCYTES (AUTO) 0.8 10^3/uL (0.5-4.7); ABSOLUTE MONOCYTES (AUTO) 0.4 10^3/uL (0.1-1.4); ABSOLUTE NEUT (AUTO) 7.7 10^3/uL (1.7-8.2); BASOPHILS % (AUTO) 0.1 % (0-2); HEMATOCRIT 29.9 % (36.0-47.0); LYMPHOCYTES % (AUTO) 8.8 % (13-45); MEAN CORPUSCULAR HEMOGLOBIN 32.9 pg (27.0-33.4); MEAN CORPUSCULAR HGB CONC 34.7 g/dL (32.0-36.0); MEAN CORPUSCULAR VOLUME 95 fl (80-97); MONOCYTES % (AUTO) 4.3 % (3-13); PLATELET COUNT 219 10^3/uL (150-450); RED BLOOD COUNT 3.14 10^6/uL (3.72-5.28); RED CELL DISTRIBUTION WIDTH 14.5 % (11.5-14.0); SEGMENTED NEUTROPHILS % (AUTO) 86.8 % (42-78); TOTAL CELLS COUNTED % (AUTO) 100 %; WHITE BLOOD COUNT 8.9 10^3/uL (4.0-10.5)
[2018-12-21 06:08] LABS: HEMOGLOBIN 10.4 g/dL (12.0-15.5)
[2018-12-21 06:13] LABS: ANION GAP 9 (5-19); BLOOD UREA NITROGEN 9 mg/dL (7-20); CALCIUM 7.1 mg/dL (8.4-10.2); CARBON DIOXIDE 23 mmol/L (22-30); CHLORIDE 110 mmol/L (98-107); GLUCOSE 105 mg/dL (75-110); POTASSIUM 3.7 mmol/L (3.6-5.0)
[2018-12-21] MEDS: NORMAL SALINE 1000 ML 1,000 ML IV PRN (08:25)
--- NOTE | 2018-12-21 09:13 | PDOC DISCHARGE SUMMARY ---
General - Admit/Disc Date/PCP Admission Date/Primary Care Provider: 12/20/18 00:46 [facility] Discharge Date: 12/21/18 - Discharge Diagnosis Final Diagnosis: Acute, nonperforated appendicitis - Assessment Summary: This a 43-year-old female with right lower quadrant pain, found to have appendicitis in the emergency department. She was taken to the operating room yesterday for laparoscopic appendectomy. Surgery was successful. She was taken to the floor in stable condition. Overnight, she did very well. She is afebrile and normotensive. She is tolerating liquids. She is ambulating, and comfortable with oral pain medications. At this time, I believe she is medically fit for discharge. - Additional Information Resuscitation Status: Full Code Discharge Diet: As Tolerated Discharge Activity: No Lifting Over 10 Pounds, No Lifting/Push/Pulling Referrals: GUANAKO MARKS FNP-C [NO LOCAL MD] - Follow up as needed Home Medications: Anastrozole [Arimidex 1 mg Tablet] 1 mg PO DAILY 12/20/18 Calcium Carbonate/Vitamin D3 [Calcium 500-Vit D3 200 Caplet] 1 tab PO DAILY 12/20/18 Potassium Gluconate 1,000 mg PO DAILY 12/20/18 Additional Information: Discharge home. Diet as tolerated. Activity: No lifting greater than 10 pounds x 2 weeks. Follow-up with me in 7 to 10 days at [facility]. Flagyl 500 mg p.o. 3 times daily. Augmentin 875 mg p.o. twice daily. [place] 10/325 mg p.o. every 6 hours as needed for pain. Ibuprofen 800 mg p.o. 3 times daily with meals. Okay to shower starting Thursday. No tub baths or swimming pools x2 weeks. History of Present Illiness History of Present Illness: RICHELLE DICK is a 43 year old female Physical Exam Vital Signs: Temp Pulse Resp BP Pulse Ox 97.8 F 59 L 16 139/83 H 99 12/21/18 07:31 12/21/18 07:31 12/21/18 07:31 12/21/18 07:31 12/21/18 07:31 Intake & Output 12/20/18 12/21/18 12/22/18 06:59 06:59 06:59 Intake Total 1999 3380 1000 Output Total 360 Balance 1999 3020 1000 Weight 93.3 kg 94.1 kg Results Laboratory Results: WBC 8.9 10^3/uL (4.0-10.5) 12/21/18 05:14 RBC 3.14 10^6/uL (3.72-5.28) L 12/21/18 05:14 Hgb 10.4 g/dL (12.0-15.5) L D 12/21/18 05:14 Hct 29.9 % (36.0-47.0) L 12/21/18 05:14 MCV 95 fl (80-97) 12/21/18 05:14 MCH 32.9 pg (27.0-33.4) 12/21/18 05:14 MCHC 34.7 g/dL (32.0-36.0) 12/21/18 05:14 RDW 14.5 % (11.5-14.0) H 12/21/18 05:14 Plt Count 219 10^3/uL (150-450) 12/21/18 05:14 Lymph % (Auto) 8.8 % (13-45) L 12/21/18 05:14 [place] % (Auto) 4.3 % (3-13) 12/21/18 05:14 Eos % (Auto) 0.0 % (0-6) 12/21/18 05:14 Baso % (Auto) 0.1 % (0-2) 12/21/18 05:14 Absolute Neuts (auto) 7.7 10^3/uL (1.7-8.2) 12/21/18 05:14 Absolute Lymphs (auto) 0.8 10^3/uL (0.5-4.7) 12/21/18 05:14 Absolute Monos (auto) 0.4 10^3/uL (0.1-1.4) 12/21/18 05:14 Absolute Eos (auto) 0.0 10^3/uL (0.0-0.6) 12/21/18 05:14 Absolute Basos (auto) 0.0 10^3/uL (0.0-0.2) 12/21/18 05:14 Total Counted 100 12/19/18 20:24 Seg Neutrophils % 86.8 % (42-78) H 12/21/18 05:14 Seg Neuts % (Manual) 87 % (42-78) H 12/19/18 20:24 Band Neutrophils % 6 % (3-5) H 12/19/18 20:24 Lymphocytes % (Manual) 6 % (13-45) L 12/19/18 20:24 Monocytes % (Manual) 1 % (3-13) L 12/19/18 20:24 Eosinophils % (Manual) 0 % (0-6) 12/19/18 20:24 Basophils % (Manual) 0 % (0-2) 12/19/18 20:24 Abs Neuts (Manual) 12.9 10^3/uL (1.7-8.2) H 12/19/18 20:24 Abs Lymphs (Manual) 0.8 10^3/uL (0.5-4.7) 12/19/18 20:24 Abs Monocytes (Manual) 0.1 10^3/uL (0.1-1.4) 12/19/18 20:24 Absolute Eos (Manual) 0.0 10^3/uL (0.0-0.6) 12/19/18 20:24 Abs Basophils (Manual) 0.0 10^3/uL (0.0-0.2) 12/19/18 20:24 Platelet Comment ADEQUATE 12/19/18 20:24 Anisocytosis SLIGHT 12/19/18 20:24 Sodium 141.6 mmol/L (137-145) 12/21/18 05:14 Potassium 3.7 mmol/L (3.6-5.0) 12/21/18 05:14 Chloride 110 mmol/L (98-107) H 12/21/18 05:14 Carbon Dioxide 23 mmol/L (22-30) 12/21/18 05:14 Anion Gap 9 (5-19) 12/21/18 05:14 BUN 9 mg/dL (7-20) 12/21/18 05:14 Creatinine 0.54 mg/dL (0.52-1.25) 12/21/18 05:14 Est GFR ( Amer) > 60 (>60) 12/21/18 05:14 Est GFR (MDRD) Non-Af > 60 (>60) 12/21/18 05:14 Glucose 105 mg/dL (75-110) 12/21/18 05:14 POC Glucose 104 mg/dL (70-110) 12/20/18 12:11 Calcium 7.1 mg/dL (8.4-10.2) L 12/21/18 05:14 Total Bilirubin 0.7 mg/dL (0.2-1.3) 12/19/18 20:24 Direct Bilirubin 0.1 mg/dL (0.0-0.4) 12/19/18 20:24 Neonat Total Bilirubin Not Reportable 12/19/18 20:24 Neonat Direct Bilirubin Not Reportable 12/19/18 20:24 Neonat Indirect Bili Not Reportable 12/19/18 20:24 AST 28 U/L (14-36) 12/19/18 20:24 ALT 39 U/L (<35) 12/19/18 20:24 Alkaline Phosphatase 82 U/L (38-126) 12/19/18 20:24 Total Protein 7.8 g/dL (6.3-8.2) 12/19/18 20:24 Albumin 4.8 g/dL (3.5-5.0) 12/19/18 20:24 Lipase 74.5 U/L (23-300) 12/19/18 20:24 Serum HCG, Qual NEGATIVE (NEGATIVE) 12/19/18 20:24 Urine Color YELLOW 12/20/18 18:30 Urine Appearance CLEAR 12/20/18 18:30 Urine pH 5.0 (5.0-9.0) 12/20/18 18:30 Ur Specific [place] 1.020 12/20/18 18:30 Urine Protein NEGATIVE mg/dL (NEGATIVE) 12/20/18 18:30 Urine Glucose (UA) NEGATIVE mg/dL (NEGATIVE) 12/20/18 18:30 Urine Ketones NEGATIVE mg/dL (NEGATIVE) 12/20/18 18:30 Urine Blood SMALL (NEGATIVE) H 12/20/18 18:30 Urine Nitrite NEGATIVE (NEGATIVE) 12/20/18 18:30 Urine Nitrite (Reflex) NEGATIVE (NEGATIVE) 12/19/18 20:24 Urine Bilirubin NEGATIVE (NEGATIVE) 12/20/18 18:30 Urine Urobilinogen NEGATIVE mg/dL (<2.0) 12/20/18 18:30 Ur Leukocyte Esterase NEGATIVE (NEGATIVE) 12/20/18 18:30 Leukocyte Esterase Rfl NEGATIVE (NEGATIVE) 12/19/18 20:24 Urine WBC (Auto) 1 /HPF 12/20/18 18:30 Urine RBC (Auto) 2 /HPF 12/20/18 18:30 Urine Bacteria (Auto) TRACE /HPF 12/20/18 18:30 Urine WBC (Reflex) < 1 /HPF 12/19/18 20:24 Squamous Epi Cells Auto <1 /HPF 12/20/18 18:30 Urine Mucus (Auto) RARE /LPF 12/20/18 18:30 Urine Ascorbic Acid NEGATIVE (NEGATIVE) 12/20/18 18:30 Impressions: Abdomen/Pelvis CT 12/19/18 21:37 IMPRESSION: No acute disease.
[2018-12-21] MEDS ORDERED: ENOXAPARIN SODIUM INJ 40 MG/0.4 ML DISP.SYRIN SUBCUT SCH (10:00)
[2018-12-21] MEDS: FAMOTIDINE INJ/PF 20 MG/2 ML SDV IV SCH (11:34)
[2018-12-21 11:58] VITALS: BP 132/77
== END 2018-12-21 13:45 | disposition home or self-care (01) ==
LOC: ER 19:42 → INTOOBSV 12-20 00:46 → EH 12-20 00:46 → 3W 12-20 02:09
PROVIDERS: ADMIT Surgery; ATTEND Surgery
PROC: 0DTJ4ZZ Resection of Appendix, Percutaneous Endoscopic Approach (ICD-10-PCS; principal; 2018-12-20 12:45)
DX: K35.80 Unspecified acute appendicitis (principal); D72.829 Elevated white blood cell count, unspecified; R31.9 Hematuria, unspecified; M19.90 Unspecified osteoarthritis, unspecified site; M85.80 Other specified disorders of bone density and structure, unspecified site; R03.0 Elevated blood-pressure reading, without diagnosis of hypertension; Z85.3 Personal history of malignant neoplasm of breast; Z92.21 Personal history of antineoplastic chemotherapy; Z92.3 Personal history of irradiation; Z90.13 Acquired absence of bilateral breasts and nipples
CPT/HCPCS: 99285; 96361; 96375; 96365; 36415 ×2; 82962; 83690; 84703; 85025 ×2; 80048; 80053; 81001 ×2; 88304 ×2; 74177; 00840; 44970; G0378 ×2; J2250; J3490 ×4; J1100; J1885 ×3; J2765; J2270 ×2; J1170; J2370; J2405 ×2; J7050 ×2; J7030 ×3; J2704; S0028 ×2; J2543 ×3; J0131 ×2; 840

== ENCOUNTER → 2019-02-15 | Outpatient (CLI) | payer OTHER ==
--- NOTE | 2019-02-16 12:19 | RADIOLOGY REPORT (SQ) ---
EXAM DESCRIPTION: PET CT SKULL/THIGH COMPLETED DATE/TIME: 02/15/2019 8:30 pm REASON FOR STUDY: BREAST CA C50.411 MALIG NEOPLM OF UPPER-OUTER QUADRANT OF RIGHT FEMALE COMPARISON: PET from 10/03/2018 RADIONUCLIDE AND DOSE: 11.0 mCi F18 FDG The route of agent administration: Intravenous FASTING BLOOD SUGAR: 115 mg/dl CONTRAST TYPE AND DOSE: No CT contrast given. TECHNIQUE: Blood glucose level was verified. Above dose of FDG was injected intravenously. 2-D seg mented attenuation correction images were obtained from the base of the skull to the midthighs. Nonc ontrast CT images were obtained for attenuation correction and fusion with emission images. CT image s were performed without oral or intravenous contrast and are not sensitive for parenchymal lesions. A series of overlapping emission PET images were obtained. Images reviewed and manipulated at [facility] work station by the radiologist. Images stored on PACS. LIMITATIONS: None. FINDINGS: HEAD AND NECK: No areas of abnormal metabolic activity in the soft tissues of the head and neck. CHEST: Status post right mastectomy and axillary lymph node dissection. The subcutaneous fat strandi ng in the mastectomy bed is unchanged. There are no areas of abnormal metabolic activity in the ches t. ABDOMEN AND PELVIS: The liver demonstrates heterogeneous non focal FDG uptake with an average SUV of 2.6. There is expected physiologic activity throughout the gastrointestinal and genitourinary tracts . No areas of abnormal metabolic activity are identified in the abdomen and pelvis. PROXIMAL LOWER EXTREMITIES: No areas of abnormal metabolic activity in the soft tissues of the lower extremities. BONES: No areas of abnormal metabolic activity in the imaged axial and appendicular skeleton. ADDITIONAL CT FINDINGS: The subcutaneous strand fat stranding that extends from the mastectomy bed to the iliac crest on the right has decreased compared to the prior PET ; the area demonstrates minimal activity (maximum SUVs of 1.2) without a focal abnormality on the nondiagnostic CT. The tip of the right subclavian port projects within the SVC. The diffuse low attenuation of hepatic parenchyma is consistent with hepatic steatosis. The spleen is normal in size. There is no abnormality of the ojeda creas, adrenal glands and kidneys. The urinary bladder is partially distended. There is no abnormal ity of the adnexa that is apparent on CT. There is colonic diverticulosis without diverticulitis. T he appendix is surgically absent. There is no bowel obstruction, bowel wall thickening, or pericoloni c/ perienteric inflammation. There is no mesenteric adenopathy, free intraperitoneal fluid or mesent vishnu/ omental inflammation. The abdominal aorta is normal in caliber. There is a variant circumaort ic left renal vein. OTHER: No other findings. IMPRESSION: No metabolic evidence of recurrence. As described above, the subcutaneous stranding on the right side that extends from the mastectomy PET to the iliac crest has decreased and as on the pr ior PET demonstrates minimal metabolic activity with maximum SUVs of 1.2. TECHNICAL DOCUMENTATION: JOB ID: [id number] [employer]- All Rights Reserved Reading location - IP/workstation name: [email or web address]
== END ==
LOC: RAD 07:40
PROVIDERS: ATTEND Physician Assistant Medical
DX: C50.411 Malignant neoplasm of upper-outer quadrant of right female breast (principal)
CPT/HCPCS: 78815; A9552

== ENCOUNTER → 2019-03-28 | Outpatient (CLI) | payer OTHER ==
--- NOTE | 2019-03-28 17:30 | RADIOLOGY REPORT (SQ) ---
EXAM DESCRIPTION: NM MUGA REST COMPLETED DATE/TIME: 03/28/2019 3:42 pm REASON FOR STUDY: BREAST CA (C50.411), ENCTR FOR F/U EXAM AFTER COMPLETED TX FOR MALIGNANT NE C50.41 1 MALIG NEOPLM OF UPPER-OUTER QUADRANT OF RIGHT FEMALE COMPARISON: 08/10/2018 RADIONUCLIDE AND DOSE: 25 mCi technetium 99m labeled red blood cells The route of agent administration: Intravenous TECHNIQUE: Following administration of the radionuclide, gated images of the heart are obtained in t hree projections. Left ventricular functional analysis performed. LIMITATIONS: None. FINDINGS: LEFT VENTRICULAR FUNCTION: EJECTION FRACTION: 71%. END-DIASTOLIC VOLUME: 131 mL. END-SYSTOLIC VOLUME: 34 mL. WALL MOTION: No focal wall motion abnormalities. OTHER: No other significant finding. IMPRESSION: NORMAL CARDIAC MUGA STUDY. NORMAL LEFT VENTRICULAR FUNCTION WITH VALUES ABOVE. TECHNICAL DOCUMENTATION: JOB ID: [id number] 2010 [employer]- All Rights Reserved Reading location - IP/workstation name: [email or web address]
== END ==
LOC: RAD 13:22
PROVIDERS: ATTEND Internal Medicine
DX: Z08 Encounter for follow-up examination after completed treatment for malignant neoplasm (principal); C50.411 Malignant neoplasm of upper-outer quadrant of right female breast
CPT/HCPCS: 78472; A9560; Q9969

== ENCOUNTER → 2019-11-23 | Outpatient (CLI) | payer OTHER ==
--- NOTE | 2019-11-23 12:27 | RADIOLOGY REPORT (SQ) ---
EXAM DESCRIPTION: NM MUGA REST IMAGES COMPLETED DATE/TIME: 11/23/2019 11:46 am REASON FOR STUDY: Z. ENCOUNTER FOR OTHER SPECIFIED SPECIAL EXAMINATIONS Z01. ENCOUNTER FOR OT HER SPECIFIED SPECIAL EXAMINATIONS COMPARISON: None. RADIONUCLIDE AND DOSE: 25.8 mCi technetium 99m labeled red blood cells The route of agent administration: Intravenous TECHNIQUE: Following administration of the radionuclide, gated images of the heart are obtained in t hree projections. Left ventricular functional analysis performed. LIMITATIONS: None. FINDINGS: LEFT VENTRICULAR FUNCTION: EJECTION FRACTION: 66%. END-DIASTOLIC VOLUME: 137 mL. END-SYSTOLIC VOLUME: 42 mL. WALL MOTION: No focal wall motion abnormalities. OTHER: No other significant finding. IMPRESSION: NORMAL CARDIAC MUGA STUDY. NORMAL LEFT VENTRICULAR FUNCTION WITH VALUES ABOVE. TECHNICAL DOCUMENTATION: JOB ID: [id number] 2010 [employer]- All Rights Reserved Reading location - IP/workstation name: [email or web address]
== END ==
LOC: RAD 10:33
PROVIDERS: ATTEND Physician Assistant Medical
DX: Z01.89 Encounter for other specified special examinations (principal)
CPT/HCPCS: 78472; A9560; Q9969

== ENCOUNTER → 2020-02-20 | Outpatient (CLI) | payer OTHER ==
--- NOTE | 2020-02-20 15:53 | RADIOLOGY REPORT (SQ) ---
EXAM DESCRIPTION: NM MUGA REST IMAGES COMPLETED DATE/TIME: 02/20/2020 3:10 pm REASON FOR STUDY: (C50.411)MALIG NEOPLM OF UPPER-OUTER QUADRANT OF RIGHT FEMALE BREAST C50.411 GEOVANNY G NEOPLM OF UPPER-OUTER QUADRANT OF RIGHT FEMALE COMPARISON: 11/23/2019 RADIONUCLIDE AND DOSE: 20 mCi technetium 99m labeled red blood cells The route of agent administration: Intravenous TECHNIQUE: Following administration of the radionuclide, gated images of the heart are obtained in t hree projections. Left ventricular functional analysis performed. LIMITATIONS: None. FINDINGS: LEFT VENTRICULAR FUNCTION: EJECTION FRACTION: 69%. END-DIASTOLIC VOLUME: 134 mL. END-SYSTOLIC VOLUME: 33 mL. WALL MOTION: No focal wall motion abnormalities. OTHER: No other significant finding. IMPRESSION: NORMAL CARDIAC MUGA STUDY. NORMAL LEFT VENTRICULAR FUNCTION WITH VALUES ABOVE. TECHNICAL DOCUMENTATION: JOB ID: [id number] 2010 [employer]- All Rights Reserved Reading location - IP/workstation name: [email or web address]
== END ==
LOC: RAD 14:04
PROVIDERS: ATTEND Physician Assistant Medical
DX: C50.411 Malignant neoplasm of upper-outer quadrant of right female breast (principal); T45.1X5D Adverse effect of antineoplastic and immunosuppressive drugs, subsequent encounter; Z79.899 Other long term (current) drug therapy
CPT/HCPCS: 78472; A9560; Q9969

== ENCOUNTER → 2020-02-28 | Outpatient (CLI) | payer OTHER ==
--- NOTE | 2020-02-28 13:29 | RADIOLOGY REPORT (SQ) ---
EXAM DESCRIPTION: PET CT SKULL/THIGH IMAGES COMPLETED DATE/TIME: 02/28/2020 12:22 pm REASON FOR STUDY: C50.411 MALIGNANT NEOPLASM OF UPPER-OUTER QUADRANT OF RIGHT FEMALE BREAST C50.411 MALIG NEOPLM OF UPPER-OUTER QUADRANT OF RIGHT FEMALE COMPARISON: Prior PET-CT dated 02/15/2019 RADIONUCLIDE AND DOSE: 10.69 mCi F18 FDG The route of agent administration: Intravenous FASTING BLOOD SUGAR: 98 mg/dl CONTRAST TYPE AND DOSE: No CT contrast given. TECHNIQUE: Blood glucose level was verified. Above dose of FDG was injected intravenously. 2-D seg mented attenuation correction images were obtained from the base of the skull to the midthighs. Nonc ontrast CT images were obtained for attenuation correction and fusion with emission images. CT image s were performed without oral or intravenous contrast and are not sensitive for parenchymal lesions. A series of overlapping emission PET images were obtained. Images reviewed and manipulated at [facility] work station by the radiologist. Images stored on PACS. LIMITATIONS: None. FINDINGS: HEAD AND NECK: No areas of abnormal metabolic activity in the soft tissues of the head and neck. CHEST: Mild residual activity in the right chest wall. Highest SUV is 1.4. On CT images the inflamm ation is slightly improved. ABDOMEN AND PELVIS: No areas of abnormal metabolic activity in the abdomen or pelvis. Expected physi ologic activity is present in the genitourinary system and bowel. PROXIMAL LOWER EXTREMITIES: No areas of abnormal metabolic activity in the soft tissues of the lower extremities. BONES: No abnormal metabolic activity in the visualized skeleton. ADDITIONAL CT FINDINGS: No additional significant findings on the noncontrast CT images. OTHER: No other significant findings. IMPRESSION: Negative PET-CT. Mild persistent activity in right lateral chest wall just inferior to the mastectomy site. This is overall slightly improved from prior exam. No evidence of metastatic d isease. TECHNICAL DOCUMENTATION: JOB ID: [id number] 2010 [employer]- All Rights Reserved Reading location - IP/workstation name: [email or web address]
== END ==
LOC: RAD 08:52
PROVIDERS: ATTEND Physician Assistant Medical
DX: C50.411 Malignant neoplasm of upper-outer quadrant of right female breast (principal)
CPT/HCPCS: 78815; A9552